=== PATIENT | male | born 1950 | race Two or more races ===

== ENCOUNTER 2019-12-03 04:47 | Inpatient (IN) | payer MEDICARE, MEDICAID ==
[2019-12-03] VITALS (43 sets, daily range): BP systolic 89–121; BP diastolic 46–64
[~2019-12-03] VITALS: Ht 167.6 cm; Wt 84.4 kg
--- NOTE | 2019-12-03 05:03 | NUR ---
Note kymone in EDM - 12/03/19 at 0504 by MORENO PT CAME TO ER NIDIA SALES C/O CHEST PAIN. PT STATES THAT WHEN HE WAS AT HOME, HE HAD CHEST PAIN 07/20. CURRRHYSTLY DENIES PAIN. AAOX4. NO SOB. BREATHING EVENLY AND UNLABORED ON ROOM AIR. CONNECTED TO IRONWORKER.
--- NOTE | 2019-12-03 05:03 | NUR ---
PT CAME TO ER BIB RA C/O NONRADIATING MIDSTERNAL CHEST PAIN. PT STATES THAT WHEN HE WAS AT HOME, HE HAD CHEST PAIN 07/20. MARYBETHTLY STATES PAIN IS A /. AAOX4. NO SOB. BREATHING EVENLY AND UNLABORED ON ROOM AIR. CONNECTED TO FULL STACK WEB DEVELOPER.
[2019-12-03 05:34] LABS: BASOPHILS # (AUTO) 0.1 /CMM (0.0-0.2); BASOPHILS % (AUTO) 1.2 % (0.0-2.0); EOSINOPHILS % (AUTO) 1.2 % (0.0-6.0); LYMPHOCYTES % (AUTO) 16.3 % (20.0-44.0); MEAN CORPUSCULAR HGB CONC 34 g/dl (31.0-36.0); MEAN CORPUSCULAR VOLUME 93 fL (80-96); MONOCYTES # (AUTO) 0.7 /CMM (0.1-1.30); MONOCYTES % (AUTO) 6.1 % (2.0-12.0); NEUTROPHILS # (AUTO) 9.2 /CMM (1.8-8.9); NEUTROPHILS % (AUTO) 75.2 % (43.0-81.0); PLATELET COUNT (AUTO) 494 /CMM (150-450); RED BLOOD CELL COUNT(AUTO) 1.81 MIL/uL (4.5-6.0); WHITE BLOOD COUNT (AUTO) 12.2 K/uL (4.3-11.0)
[2019-12-03 05:36] LABS: HEMATOCRIT 17 % (39-51); HEMOGLOBIN 5.6 g/dL (13.5-17.5)
[2019-12-03 05:37] LABS: CALCIUM, SERUM 8.6 mg/dL (8.5-10.1); CARBON DIOXIDE 27 mmol/L (21-32); CHLORIDE 103 mmol/L (98-107); CREATININE 1.5 mg/dL (0.6-1.3); GLUCOSE 175 mg/dL (74-106); POTASSIUM 4.6 mmol/L (3.5-5.1); SODIUM SERUM 137 mmol/L (136-145); UREA NITROGEN, BLOOD 41 mg/dL (7-18)
[2019-12-03] MEDS ORDERED: IV NS 0.9% 1,000 ML BAG IV ONE (06:00)
[2019-12-03 06:03] LABS: EOSINOPHILS % (MANUAL) 3 % (0-4); LYMPHOCYTES % (MANUAL) 18 % (16-48); MONOCYTES % (MANUAL) 2 % (0-11.0); NEUTROPHILS % (MANUAL) 77 (42-76)
--- NOTE | 2019-12-03 06:24 | NUR ---
BLOOD CONSENT FORM SIGNED
[2019-12-03 06:30] LABS: ALBUMIN 3.5 g/dL (3.4-5.0); BILIRUBIN,DIRECT 0.1 mg/dL (0.0-0.2); BILIRUBIN,TOTAL 0.4 mg/dL (0.2-1.0); TOTAL PROTEIN, SERUM 7.5 g/dL (6.4-8.2)
--- NOTE | 2019-12-03 07:34 | NUR ---
REPORT GIVEN TO LINDSEY LYNN FOR VIDAL.
--- NOTE | 2019-12-03 07:39 | NUR ---
CALLED FOR ICU BED AND SUBMITTED THE MOVE SHEET TO ADMITTING.
--- NOTE | 2019-12-03 09:26 | NUR ---
EPISODE OF VOMITING, BLANK VOMITUS NOTED. AWARE.
--- NOTE | 2019-12-03 09:26 | NUR ---
VERIFIED BLOOD COMPONENT WITH OLIVA WAGNER RN.
--- NOTE | 2019-12-03 09:29 | NUR ---
PRE BLOOD TRANSFUSION VS TAKEN AND RECORDED.
[2019-12-03] MEDS ORDERED: GABA-534 PO (09:32)
[2019-12-03] MEDS ORDERED: INSU100I26 SQ (09:32)
[2019-12-03] MEDS ORDERED: POTA10TA10 PO (09:32)
[2019-12-03] MEDS ORDERED: CLOP75TA15 PO (09:32)
[2019-12-03] MEDS ORDERED: FLUT1BLS12 IH (09:32)
[2019-12-03] MEDS ORDERED: SACU1TAB PO (09:32)
[2019-12-03] MEDS ORDERED: GLIM4TAB PO (09:32)
[2019-12-03] MEDS ORDERED: FURO-144 PO (09:32)
[2019-12-03] MEDS ORDERED: SPIR25TA PO (09:32)
[2019-12-03] MEDS ORDERED: METO25TA3 PO (09:32)
[2019-12-03] MEDS ORDERED: ASPI-1152 PO (09:32)
[2019-12-03] MEDS ORDERED: NITR0.4T48 SL (09:32)
[2019-12-03] MEDS ORDERED: FERR325T24 PO (09:32)
[2019-12-03] MEDS ORDERED: LEVO100T9 PO (09:32)
[2019-12-03] MEDS ORDERED: ATOR40TA PO (09:32)
[2019-12-03] MEDS ORDERED: SITA1TAB6 PO (09:32)
[2019-12-03] MEDS ORDERED: TAMS-12 PO (09:32)
[2019-12-03] MEDS ORDERED: FOLI0.4T2 PO (09:32)
[2019-12-03] MEDS ORDERED: CYAN-51 PO (09:32)
--- NOTE | 2019-12-03 09:59 | NUR ---
REPORT GIVEN TO JOSEFA LYNN OF ICU
[2019-12-03] MEDS ORDERED: ONDANSETRON HCL/PF - ER 4 MG/2 ML VIAL IV ONE (10:00)
[2019-12-03] MEDS ORDERED: ONDANSETRON HCL/PF 4 MG/2 ML VIAL ONE (10:15)
--- NOTE | 2019-12-03 10:30 | NUR ---
RN NOTES RECEIVED PT FROM ER IN ROOM 257, PT IS A/Ox4, ON 2L O2 N/C , RESPIRATION EVEN AND UNLABORED,NO DISTRESS NOTED, ON TELE SR-ST, L AC IV SITE G 18 CLEAN, DRY AND INTACT, PT REFUSED TO HAVE SECOND IV SITE ,PT RECEIVING FIRST UNIT OF PRBC , SUPPORTIVE FAMILY AT THE BEDSIDE, SR UP x3, CALL LIGHT WITHIN EASY REACH, BED LOCKED AND IN LOWEST POSITION, CONTINUE TO MONITOR .
[2019-12-03] MEDS ORDERED: ZOLPIDEM TARTRATE 5 MG TABLET PO PRN (11:00)
[2019-12-03] MEDS ORDERED: Z GUARD REMEDY 2 OZ OINT TP PRN (11:00)
[2019-12-03] MEDS ORDERED: MAGNESIUM HYDROXIDE 30 ML UDC PO PRN (11:00)
[2019-12-03] MEDS: PANTOPRAZOLE 40 MG VIAL IV SCH ×2 (11:04→21:45)
[2019-12-03] MEDS ORDERED: DEXTROSE 50%-WATER 50 ML DISP.SYRIN IV PRN (11:30)
--- NOTE | 2019-12-03 12:00 | NUR ---
RN NOTES EDDIE BARK SPUDDER NOTIFED REGARDING TROPONIN .157 , NOW NEW ORDER GIVEN , CONTINUE TO MONITOR .
[2019-12-03] MEDS: BLOOD SUGAR DIAGNOSTIC 1 EACH STRIP IN SCH ×3 (12:29→21:45)
--- NOTE | 2019-12-03 14:00 | NUR ---
RN NOTE SECOND UNIT OF PRBC NOT RECEIVED FROM [place] [facility] YET PER LAB . VSS STABLE, CONTINUE TO FOLLOW UP .
[2019-12-03 14:13] LABS: IRON, SERUM 89 ug/dl (50-175); TOTAL IRON BINDING CAPACITY 259 ug/dl (250-450)
[2019-12-03 14:27] LABS: FERRITIN 259 ng/mL (8-388)
--- NOTE | 2019-12-03 17:57 | NUR ---
RN NOTES PT TOLERATING THE SECOND UNIT OF PRBC WELL , NO DISTRESS NOTED, EDDIE LAY HEALTH ADVOCATE NOITFED REGARDING TROPONIN 0.285 , CONTINUE TO MONITOR .
--- NOTE | 2019-12-03 18:30 | NUR ---
RN NOTES PT STABLE , STATED HAS MORE ENERGY, SECOND UNIT OF PRBC TRANSFUSED, NO COMPLICATION NOTED, VSS STABLE, L UPPER ARM MIDLINE SITE CLEAN, DRY AND INTACT, WILL ENDOSE TO PROPERTY MANAGEMENT COORDINATOR NURSE FOR CONTINUITY OF CARE.
--- NOTE | 2019-12-03 19:15 | NUR ---
ENVIRONMENTAL SERVICES MANAGER RCD PT W/DX GI BLEED; ANEMIA PT A/0x 4 PT VERBALIZES FEELING TIRED. NSR ON MONITOR. 02 3L NC NO DISTRESS NOTED. URINAL AT BEDSIDE. BLOOD TRANSFUSION ONGOING. Addendum: 12/04/19 at 0330 by ONDINA FINNEGAN RN NO ORDER FOR FOLLOW UP [facility] POST TRANSFUSION.
[2019-12-03 19:20] LABS: APPEARANCE,URINE CLEAR (CLEAR); BILIRUBIN,URINE NEGATIVE (NEGATIVE); BLOOD, URINE TRACE Ery/uL (NEGATIVE); COLOR,URINE YELLOW (YELLOW); KETONES,URINE NEGATIVE (NEGATIVE); LEUKOCYTE ESTERASE ,URINE MODERATE (NEGATIVE); NITRITE, URINE POSITIVE (NEGATIVE); PH,URINE 5.5 (5.0-8.0); PROTEIN,URINE NEGATIVE (NEGATIVE); UGLUCOSE NEGATIVE (NEGATIVE); UROBILINOGEN,URINE 0.2 EU/dL (0.2)
[2019-12-03 19:35] LABS: CREATININE, URINE 75.3 MG/DL (30.0-125.0); URINE TOTAL PROTEIN 17.9 mg/dL (0-11.9)
[2019-12-03 19:47] LABS: BACTERIA,URINE 3+ /HPF (None Seen); WBC,URINE 51-80 /HPF (0-3)
[2019-12-03 19:48] LABS: MUCUS,URINE Few /LPF (None Seen); SQUAMOUS EPITHELIAL CELL,UR 0-2 /HPF (None Seen)
[2019-12-03 20:51] LABS: EOSINOPHIL,URINE None Seen
--- NOTE | 2019-12-03 21:45 | NUR ---
POUCH MAKER PT DECLINED ACCU CHECK AT THIS TIME ASKED NURSE TO COME BACK LATER.
[2019-12-04] VITALS (23 sets, daily range): BP systolic 102–145; BP diastolic 54–77
--- NOTE | 2019-12-04 03:28 | NUR ---
SUPERVISOR DIE CASTING PT CONTINUES SLEEPING NO DISTRESS NOTED AT THIS TIME.
[2019-12-04 04:33] LABS: BASOPHILS # (AUTO) 0.1 /CMM (0.0-0.2); BASOPHILS % (AUTO) 1.4 % (0.0-2.0); EOSINOPHILS % (AUTO) 0.7 % (0.0-6.0); HEMATOCRIT 22 % (39-51); HEMOGLOBIN 7.3 g/dL (13.5-17.5); LYMPHOCYTES # (AUTO) 0.9 /CMM (0.8-4.8); LYMPHOCYTES % (AUTO) 8.4 % (20.0-44.0); MEAN CORPUSCULAR HGB CONC 33 g/dl (31.0-36.0); MEAN CORPUSCULAR VOLUME 93 fL (80-96); MONOCYTES # (AUTO) 0.5 /CMM (0.1-1.30); MONOCYTES % (AUTO) 4.8 % (2.0-12.0); NEUTROPHILS # (AUTO) 8.8 /CMM (1.8-8.9); NEUTROPHILS % (AUTO) 84.7 % (43.0-81.0); PLATELET COUNT (AUTO) 388 /CMM (150-450); RED BLOOD CELL COUNT(AUTO) 2.34 MIL/uL (4.5-6.0); WHITE BLOOD COUNT (AUTO) 10.4 K/uL (4.3-11.0)
[2019-12-04] MEDS: HYDROCODONE/APAP 5/325MG 1 EACH TABLET PO PRN ×2 (04:38→21:19)
[2019-12-04 04:47] LABS: ALBUMIN 3.3 g/dL (3.4-5.0); BILIRUBIN,TOTAL 0.5 mg/dL (0.2-1.0); CALCIUM, SERUM 8.6 mg/dL (8.5-10.1); CREATININE 1.3 mg/dL (0.6-1.3); MAGNESIUM 1.9 mg/dL (1.8-2.4); PHOSPHORUS 3.9 mg/dL (2.5-4.9); POTASSIUM 4.3 mmol/L (3.5-5.1); TOTAL PROTEIN, SERUM 7.1 g/dL (6.4-8.2)
[2019-12-04] MEDS: ONDANSETRON HCL/PF 4 MG/2 ML VIAL IVP PRN (05:27)
[2019-12-04] MEDS ORDERED: MORPHINE SULFATE INJ 2 MG/ML DISP.SYRIN IV PRN (05:30)
--- NOTE | 2019-12-04 05:40 | NUR ---
COLORIST PT MOANING AND AGITATED C/O ABDOMINAL PAIN WITHOUT RELIEF AFTER NORCO ADMINISTRATION; PT HR INCREASED TO 130 SATURATION 89. RCD ORDER FOR MORPHINE. INCREASED O2 5L NC. PT ATTEMPTING TO CALL STATES HE DOES NOT WANT TO HERE. PT DENIES CHEST PAIN. CONTINUE TO MONITOR PT.
--- NOTE | 2019-12-04 05:44 | NUR ---
SEARCH ANALYST MULTIPLE ATTEMPTS TO CALL HOWEVER SHE DOES NOT ANSWER.
--- NOTE | 2019-12-04 05:52 | NUR ---
PAPER MACHINE SUPERVISOR PT MORE CALM AT THIS TIME; DENIES PAIN CONTINUES TO WORRY HE CAN NOT REACH HIS .
[2019-12-04] MEDS: BLOOD SUGAR DIAGNOSTIC 1 EACH STRIP IN SCH ×4 (07:54→21:19)
[2019-12-04] MEDS: PANTOPRAZOLE 40 MG VIAL IV SCH ×2 (08:05→21:18)
[2019-12-04] MEDS: INSULIN REGULAR, HUMAN 100 UNIT/ML 3 ML VIAL SQ PRN ×2 (08:38→13:25)
[2019-12-04] MEDS ORDERED: Sacubitril/Valsartan (Entresto 24 mg-26 mg Tablet) PO SCH (09:00)
[2019-12-04 09:11] LABS: THYROID STIMULATING HORMONE 2.916 uIU/mL (0.358-3.74)
--- NOTE | 2019-12-04 09:51 | NUR ---
ICU/RN: Spoke with Dr Landry regarding troponin bump, per MD, nothing we can do as of now - pt "needs gi eval then cath, sounds like they want [facility]."
[2019-12-04] MEDS: GLIMEPIRIDE 4 MG TABLET PO SCH (10:34)
[2019-12-04] MEDS: FLUTICASONE/VILANTEROL 1 EACH BLST.W.DEV IH SCH ×2 (10:34→17:59)
[2019-12-04] MEDS: TAMSULOSIN 0.4 MG CAP.SR.24H PO SCH (10:35)
[2019-12-04] MEDS: SPIRONOLACTONE 25 MG TABLET PO SCH (10:35)
[2019-12-04] MEDS: LEVOTHYROXINE SODIUM 100 MCG TABLET PO SCH (10:35)
--- NOTE | 2019-12-04 11:00 | NUR ---
ICU/RN: Dr Landry at bedside; per rick HOLCOMB to proceed with downgrade to telemetry. Pt to inform of pt transfer to [facility]2.
--- NOTE | 2019-12-04 11:05 | NUR ---
ICU/RN: Pt transferred to [place] [id number] in stable condition; no distress noted. Bedside hand off given to LEAH Merida. Pending transfer to [facility] and VANESSA mccormack.
[2019-12-04] MEDS: ACETAMINOPHEN 325 MG TABLET PO PRN (12:21)
--- NOTE | 2019-12-04 12:30 | NUR ---
RN NOTES PT HAS A TEMP OF 99.9, PRN TYLENOL GIVEN. WBC HAS ALSO INCREASED. RELAYED INFORMATION TO MD, NO NEW ORDERS AT THIS TIME. NOTIFIED MD TO COMPLETE MED RECON, WILL CONTINUE TO MONITOR FOR ANY CHANGES.
[2019-12-04 12:41] LABS: HEMATOCRIT 23 % (39-51); HEMOGLOBIN 7.7 g/dL (13.5-17.5); MEAN CORPUSCULAR HGB CONC 34 g/dl (31.0-36.0); MEAN CORPUSCULAR VOLUME 93 fL (80-96); PLATELET COUNT (AUTO) 435 /CMM (150-450); RED BLOOD CELL COUNT(AUTO) 2.48 MIL/uL (4.5-6.0); WHITE BLOOD COUNT (AUTO) 14.2 K/uL (4.3-11.0)
--- NOTE | 2019-12-04 19:54 | NUR ---
RN NOTES PATIENT IS RESTING IN BED COMFORTABLY AT THIS TIME, NO S.SX OF DISTRESS. HE IS ON 3L OFOXYGEN VIA NC, TOLERATING WELL. PT NEEDS HAVE BEEN MET, VITAL SIGNS ARE STABLE, NO ACUTE CHANGES OCCURRED THROUGHOUT THE SHIFT. SAFETY MEASURES HAVE BEEN IMPLEMENTED, CALL LIGHT IS WITHIN REACH, BED IS IN LOWEST AND LOCKED POSITION, SIDE RAILS UP X2M, WILL CONTINUE TO MONITOR FOR ANY CHANGES.
--- NOTE | 2019-12-04 19:59 | NUR ---
PT HAS BEEN ENDORSED TO NIGHTSHIFT RN FOR VIDAL
--- NOTE | 2019-12-04 20:10 | NUR ---
RN NOTE SPOKE WITH DR. MCINTYRE WITH ORDERS TO PLACE PT NPO AFTER MIDNIGHT AND OBTAIN CONSENT FOR EGD @6AM. ORDERS NOTED AND CARRIED OUT.
[2019-12-04] MEDS: GABAPENTIN 300 MG CAPSULE PO SCH (21:19)
[2019-12-04] MEDS: ATORVASTATIN 40 MG TABLET PO SCH (21:19)
--- NOTE | 2019-12-04 21:30 | NUR ---
RN NOTE PT C/O SORE THROAT AND PRODUCTIVE COUGH WITH CLEAR SECRETIONS. NOTIFIED VEGETABLE HARVEST MACHINE OPERATOR DR BONILLA WITH ORDERS TO GIVE ROBITUSSIN AC Q6H PRN. ORDERS NOTED AND CARRIED OUT.
[2019-12-04] MEDS: GUAIFENESIN/CODEINE 10 ML UDC PO PRN (21:52)
[2019-12-05] VITALS (10 sets, daily range): BP systolic 101–115; BP diastolic 52–61
[2019-12-05] MEDS: GUAIFENESIN/CODEINE 10 ML UDC PO PRN ×2 (04:38→17:07)
[2019-12-05] MEDS: ACETAMINOPHEN 325 MG TABLET PO PRN ×2 (04:38→15:12)
--- NOTE | 2019-12-05 05:45 | NUR ---
RN NOTE PT TAKEN TO OR BY SURGERY TEAM VIA BED. A/O X4 AND PASHTO SPEAKING. ON 4L OF O2 VIA NC AND TOLERATING WELL. REMAINED NPO SINCE MIDNIGHT. WILL ENDORSE TO NEXT SHIFT.
[2019-12-05 06:24] LABS: BASOPHILS # (AUTO) 0.1 /CMM (0.0-0.2); BASOPHILS % (AUTO) 0.7 % (0.0-2.0); EOSINOPHILS % (AUTO) 0.6 % (0.0-6.0); LYMPHOCYTES # (AUTO) 0.9 /CMM (0.8-4.8); LYMPHOCYTES % (AUTO) 10.6 % (20.0-44.0); MEAN CORPUSCULAR HGB CONC 34 g/dl (31.0-36.0); MEAN CORPUSCULAR VOLUME 93 fL (80-96); MONOCYTES # (AUTO) 0.5 /CMM (0.1-1.30); MONOCYTES % (AUTO) 5.3 % (2.0-12.0); NEUTROPHILS # (AUTO) 7.1 /CMM (1.8-8.9); NEUTROPHILS % (AUTO) 82.8 % (43.0-81.0); PLATELET COUNT (AUTO) 355 /CMM (150-450); RED BLOOD CELL COUNT(AUTO) 2.18 MIL/uL (4.5-6.0); WHITE BLOOD COUNT (AUTO) 8.6 K/uL (4.3-11.0)
[2019-12-05 06:31] LABS: ALANINE AMINOTRANSFERASE 11 U/L (12-78); ALBUMIN 3.4 g/dL (3.4-5.0); ALKALINE PHOSPHATASE 55 U/L (46-116); ASPARTATE AMINOTRANSFERASE 25 U/L (15-37); BILIRUBIN,TOTAL 0.9 mg/dL (0.2-1.0); CALCIUM, SERUM 8.1 mg/dL (8.5-10.1); CARBON DIOXIDE 22 mmol/L (21-32); CHLORIDE 103 mmol/L (98-107); CREATININE 1.6 mg/dL (0.6-1.3); GLUCOSE 162 mg/dL (74-106); MAGNESIUM 1.8 mg/dL (1.8-2.4); PHOSPHORUS 4.5 mg/dL (2.5-4.9); POTASSIUM 4.5 mmol/L (3.5-5.1); SODIUM SERUM 137 mmol/L (136-145); TOTAL PROTEIN, SERUM 7.2 g/dL (6.4-8.2); UREA NITROGEN, BLOOD 26 mg/dL (7-18)
--- NOTE | 2019-12-05 07:20 | NUR ---
RN NOTE PT RETURNED FROM OR POST EGD. PT A/O X4. DENIES PAIN AT THIS TIME. ON 4L OF O2 VIA NC. NO DISTRESS NOTED AT THIS TIME. CRITICAL VALUE H/H 6.9. NOTIFIED AT BEDSIDE. DR WILL PLACE ORDERS. ENDORSED TO NEXT SHIFT FOR CONTINUITY OF CARE.
[2019-12-05 07:22] LABS: HEMATOCRIT 20 % (39-51); HEMOGLOBIN 6.9 g/dL (13.5-17.5)
[2019-12-05] MEDS: LEVOTHYROXINE SODIUM 100 MCG TABLET PO SCH (07:45)
[2019-12-05] MEDS: BLOOD SUGAR DIAGNOSTIC 1 EACH STRIP IN SCH ×4 (07:58→21:26)
[2019-12-05 08:06] LABS: PTH, INTACT 33 pg/mL (15-65)
[2019-12-05 08:08] LABS: LYMPHOCYTES % (MANUAL) 10 % (16-48); MONOCYTES % (MANUAL) 8 % (0-11.0); NEUTROPHILS % (MANUAL) 82 (42-76)
--- NOTE | 2019-12-05 08:19 | NUR ---
RN OPENING NOTES RECEIVED PATIENT RESTING IN BED COMFORTABLY, JUST RETURNED FROM THE OR FOR EGD. HE IS AOX4, VERBAL, AND AMBULATORY. HE IS ON 4L OF OXYGEN VIA NC, TOLERATING WELL, NO SOB OR RESP DISTRESS NOTED. TELE MONITOR SHOWING ST. SKIN IS INTACT, LUNGS SOUND CLEAR. REGULAR DIET, TOLERATING WELL. AR MIDLINE IS PATENT AND INTACT, LAC 18 G IS PATENT AND INTACT. PT HAS ELEVATED TROPONIN LEVELS AND DROP IN HGB, DR. KEARA JACKSON MADE AWARE. SAFETY MEASURES HAVE BEEN IMPLEMENTED, CALL LIGHT IS WITHIN REACH, BED IS IN LOWEST AND LOCKED POSITION, SIDE RAILS UP X2, WILL CONTINUE TO MONITOR FOR OTHER CHANGES.
[2019-12-05] MEDS: PANTOPRAZOLE 40 MG VIAL IV SCH ×2 (08:30→21:10)
[2019-12-05] MEDS: FLUTICASONE/VILANTEROL 1 EACH BLST.W.DEV IH SCH ×2 (08:31→17:07)
[2019-12-05] MEDS: INSULIN REGULAR, HUMAN 100 UNIT/ML 3 ML VIAL SQ PRN ×2 (08:34→12:56)
[2019-12-05] MEDS: SPIRONOLACTONE 25 MG TABLET PO SCH (08:35)
[2019-12-05] MEDS: TAMSULOSIN 0.4 MG CAP.SR.24H PO SCH (08:35)
[2019-12-05] MEDS: GLIMEPIRIDE 4 MG TABLET PO SCH (08:35)
[2019-12-05] MEDS ORDERED: CARVEDILOL 3.125 MG TABLET PO SCH (09:00)
--- NOTE | 2019-12-05 09:50 | NUR ---
ALLIGATOR SHEAR OPERATOR NOTE INFORMED DR OKEEFE REG LOW HGB LEVEL. ORDERED 1 UNIT OF RBC. NOTED AND CARRIED OUT. WILL CONT TO MONITOR.
[2019-12-05 11:07] LABS: *SPE ALBUMIN 3.3 g/dL (2.9-4.4); *SPE ALPHA-1-GLOBULIN 0.2 g/dL (0.0-0.4); *SPE ALPHA-2-GLOBULIN 0.5 g/dL (0.4-1.0); *SPE BETA GLOBULIN 0.8 g/dL (0.7-1.3); *SPE GLOBULIN, TOTAL 3.3 g/dL (2.2-3.9); *SPE M-SPIKE Not Observed g/dL (Not Observed); *SPEGAMMA GLOBULIN 1.8 g/dL (0.4-1.8)
[2019-12-05 12:20] LABS: MEAN CORPUSCULAR HGB CONC 34 g/dl (31.0-36.0); MEAN CORPUSCULAR VOLUME 93 fL (80-96); PLATELET COUNT (AUTO) 293 /CMM (150-450); RED BLOOD CELL COUNT(AUTO) 2.03 MIL/uL (4.5-6.0); WHITE BLOOD COUNT (AUTO) 9.7 K/uL (4.3-11.0)
[2019-12-05 12:29] LABS: HEMOGLOBIN 6.3 g/dL (13.5-17.5)
[2019-12-05 12:30] LABS: HEMATOCRIT 19 % (39-51)
--- NOTE | 2019-12-05 15:39 | NUR ---
RN NOTES BLOOD TRANSFUSION HAS BEEN INITIATED, NO ADVERSE REACTIONS OCCURRED DURING FIRST 15 MIN. PT IS TOLERATING WELL. WILL CONTINUE TO MONITOR FOR ANY CHANGES.
[2019-12-05] MEDS: CEFTRIAXONE 1 G in IV D5W 50 ML IV SCH (17:07)
[2019-12-05] MEDS: ONDANSETRON HCL/PF 4 MG/2 ML VIAL IVP PRN (17:08)
--- NOTE | 2019-12-05 19:20 | NUR ---
RN OPENING NOTE RECEIVED PATIENT IN BED RESTING WITH HOB ELEVATED. WATCHING TV. A&O X4. BREATHING EVEN AND NON LABORED. NO SOB NOTED. ON O2 4L VIA NC. IN NO APPARENT DISTRESS NOTED AT THIS TIME. NO COMPLAINTS OF PAIN. ABLE TO MAKE NEEDS KNOWN. CALL LIGHT IS WITHIN REACH. WILL CONTINUE TO MONITOR.
--- NOTE | 2019-12-05 19:31 | NUR ---
RN CLOSING NOTES PATIENT IS RESTING IN BED COMFORTABLY AT THIS TIME. PT IS ON NC, TOLERATING WELL, NO SOB OR RESP DITRESS NOTED. PT IS S/P EGD AND ONE UNIT OF PRBC, TOLERATED WELL, NO ADVERSE REACTIONS OCCURRED. PT NEEDS HAVE BEEN MET, VITAL SIGNS ARE STABLE, NO ACUTE CHANGES OCCURRED THROUGHOUT THE SHIFT. SAFETY MEASURES HAVE BEEN IMPLEMENTED, CALL LIGHT IS WITHIN REACH, BED IS IN LOWEST AND LOCKED POSITION, SIDE RAILS UP X2, PT HAS BEEN ENDORSED TO NIGHTSHIFT RN FOR VIDAL.
[2019-12-05] MEDS: ATORVASTATIN 40 MG TABLET PO SCH (21:10)
[2019-12-05] MEDS: GABAPENTIN 300 MG CAPSULE PO SCH (21:10)
[2019-12-05] MEDS: CARVEDILOL 3.125 MG TABLET PO SCH (21:11)
[2019-12-06] VITALS (14 sets, daily range): BP systolic 90–140; BP diastolic 22–70
--- NOTE | 2019-12-06 06:54 | NUR ---
RN CLOSING NOTE PATIENT IS IN BED RESTING. BREATHING EVEN AND NON LABORED. A&O X3. IN NO APPARENT DISTRESS AT THIS TIME. NO SIGNIFICANT CHANGES NOTED THROUGHOUT THE NIGHT. PATIENT REMAINED STABLE. DUE MEDS GIVEN AND TOLERATED WELL. ALL NEEDS ATTENDED AND MET. PATIENT IS KEPT CLEAN, DRY, AND COMFORTABLE. WILL ENDORSE TO AM SHIFT RN FOR CONTINUATION OF CARE.
[2019-12-06 07:07] LABS: BASOPHILS % (AUTO) 0.6 % (0.0-2.0); EOSINOPHILS % (AUTO) 1.2 % (0.0-6.0); HEMATOCRIT 22 % (39-51); HEMOGLOBIN 7.1 g/dL (13.5-17.5); LYMPHOCYTES % (AUTO) 12.8 % (20.0-44.0); MEAN CORPUSCULAR HGB CONC 33 g/dl (31.0-36.0); MEAN CORPUSCULAR VOLUME 92 fL (80-96); MONOCYTES # (AUTO) 0.5 /CMM (0.1-1.30); MONOCYTES % (AUTO) 6.3 % (2.0-12.0); NEUTROPHILS % (AUTO) 79.1 % (43.0-81.0); PLATELET COUNT (AUTO) 302 /CMM (150-450); RED BLOOD CELL COUNT(AUTO) 2.34 MIL/uL (4.5-6.0); WHITE BLOOD COUNT (AUTO) 7.5 K/uL (4.3-11.0)
--- NOTE | 2019-12-06 07:10 | NUR ---
RN OPENING NOTES PT IS ASLEEP IN BED PT REMOVED NASAL CANNULA. PT IS A&OX3 PER REPORT. PT IS SR HR 84. PER REPORT PT HAS A LCW PACEMAKER. BED IS LOCKED AND IN LOWEST POSITION WITH CALL LIGHT IN REACH OF PT. WILL CONTINUE TO MONITOR.
[2019-12-06 07:55] LABS: ALANINE AMINOTRANSFERASE 18 U/L (12-78); ALKALINE PHOSPHATASE 55 U/L (46-116); ASPARTATE AMINOTRANSFERASE 24 U/L (15-37); BILIRUBIN,TOTAL 0.5 mg/dL (0.2-1.0); CALCIUM, SERUM 7.8 mg/dL (8.5-10.1); CARBON DIOXIDE 23 mmol/L (21-32); CHLORIDE 103 mmol/L (98-107); CREATININE 1.6 mg/dL (0.6-1.3); GLUCOSE 58 mg/dL (74-106); MAGNESIUM 1.9 mg/dL (1.8-2.4); PHOSPHORUS 3.6 mg/dL (2.5-4.9); POTASSIUM 4.3 mmol/L (3.5-5.1); SODIUM SERUM 136 mmol/L (136-145); TOTAL PROTEIN, SERUM 6.8 g/dL (6.4-8.2); UREA NITROGEN, BLOOD 28 mg/dL (7-18)
[2019-12-06] MEDS: BLOOD SUGAR DIAGNOSTIC 1 EACH STRIP IN SCH ×4 (08:37→22:39)
[2019-12-06] MEDS: SPIRONOLACTONE 25 MG TABLET PO SCH (08:38)
[2019-12-06] MEDS: GLIMEPIRIDE 4 MG TABLET PO SCH (08:38)
[2019-12-06] MEDS: TAMSULOSIN 0.4 MG CAP.SR.24H PO SCH (08:38)
[2019-12-06] MEDS: CARVEDILOL 3.125 MG TABLET PO SCH ×2 (08:38→21:55)
[2019-12-06] MEDS: FLUTICASONE/VILANTEROL 1 EACH BLST.W.DEV IH SCH ×2 (08:38→18:07)
[2019-12-06] MEDS: PANTOPRAZOLE 40 MG VIAL IV SCH ×2 (08:38→21:05)
[2019-12-06] MEDS: LEVOTHYROXINE SODIUM 100 MCG TABLET PO SCH (08:41)
[2019-12-06] MEDS: INSULIN REGULAR, HUMAN 100 UNIT/ML 3 ML VIAL SQ PRN ×2 (12:34→22:42)
[2019-12-06 12:45] LABS: HEMATOCRIT 23 % (39-51); HEMOGLOBIN 7.5 g/dL (13.5-17.5); MEAN CORPUSCULAR HGB CONC 34 g/dl (31.0-36.0); MEAN CORPUSCULAR VOLUME 91 fL (80-96); PLATELET COUNT (AUTO) 316 /CMM (150-450); RED BLOOD CELL COUNT(AUTO) 2.47 MIL/uL (4.5-6.0); WHITE BLOOD COUNT (AUTO) 9.9 K/uL (4.3-11.0)
[2019-12-06] MEDS: CEFTRIAXONE 1 G in IV D5W 50 ML IV SCH (14:14)
--- NOTE | 2019-12-06 18:36 | NUR ---
PT REFUSED INSULIN. BLOOD GLUCOSE 161.
--- NOTE | 2019-12-06 18:42 | NUR ---
PT DOES NOT WANT BLOOD TRANSFUSION UNTIL HE IS DONE WITH HIS DINNER.
--- NOTE | 2019-12-06 19:15 | NUR ---
RN CLOSING NOTES PT IS AWAKE IN BED PT CONTINUES TO REMOVE NASAL CANNULA AND NEEDS TO BE REMINDED FREQUENTLY TO KEEP ON NASAL CANNULA. PT IS A&OX3 AND DID NOT WANT BLOOD TRANSFUSING UNTIL AFTER DINNER. PT IS SR HR 84. WAS AT BEDSIDE AND UPDATED ON PENDING [facility] TRANSFER. PT HAS A LCW PACEMAKER. BED IS LOCKED AND IN LOWEST POSITION WITH CALL LIGHT IN REACH OF PT. WILL ENDORSE VIDAL TO DISTRIBUTION A CLASS LINEMAN RN.
--- NOTE | 2019-12-06 19:45 | NUR ---
RN OPENING NOTES: PATIENT IN BED, AWAKE, AND VERBALLY RESPONSIVE. NO SOB. NO C/O PAIN AT THIS TIME. PER AM SHIFT NURSE, PATIENT NEEDS 1 UNIT OF PRBC BLOOD TRANSFUSION, WILL REVIEW ORDERS. SAFETY PRECAUTIONS IMPLEMENTED. BED LOCKED, ALARM ON, AND IN LOW POSITION. CALL LIGHT PLACED WITHIN REACH. WILL CONT. TO MONITOR.
--- NOTE | 2019-12-06 20:45 | NUR ---
RN NOTE: VITAL SIGNS TAKEN, CONSENT SIGNED, BLOOD TRANSFUSION STARTED, WITNESSED BY CHARGE NURSE ONDINA. WILL CONT. TO MONITOR. Addendum: 12/07/19 at 0511 by KEYANA ROSS RN [id number]: PATIENT IN BED, AWAKE, VERBALLY RESPONSIVE VITALS SIGNS CHECKED PER PROTOCOL. NO ADVERSE REACTIONS NOTED DURING TRANSFUSION. WILL CONT. TO MONITOR.
[2019-12-06] MEDS: GABAPENTIN 300 MG CAPSULE PO SCH (21:04)
[2019-12-06] MEDS: ATORVASTATIN 40 MG TABLET PO SCH (21:05)
[2019-12-07] VITALS: BP 105/60
[2019-12-07] MEDS: ACETAMINOPHEN 325 MG TABLET PO PRN (00:10)
[2019-12-07 04:00] VITALS: BP 99/54
--- NOTE | 2019-12-07 07:00 | NUR ---
LINDERMAN MACHINE OPERATOR - OPENING PATIENT IN BED, ASLEEP BUT IS EASILY WOKEN WITH NAME AND TOUCH. NO C/O PAIN AT THIS TIME . NO SOB. NO ACUTE RESPIRATORY DISTRESS. PATIENT IS ON OXYGEN PRESCRIBE BY DOCTOR. PATIENT IS SATURATING WELL . BED LOCKED AND LOWEST POSITION CALL LIGHT WITH IN REACH ALL SAFETY
--- NOTE | 2019-12-07 07:25 | NUR ---
RN CLOSING NOTE: PATIENT IN BED, AWAKE, AND VERBALLY RESPONSIVE. NO SOB. NO C/O PAIN. SAFETY PRECAUTIONS IMPLEMENTED. BED LOCKED, ALARM ON, AND IN LOW POSITION. PATIENT MIGHT BE DC'D TO [facility] FOR HIGHER LEVEL OF CARE. ENDORSED TO AM SHIFT NURSE FOR CONTINUITY OF CARE.
[2019-12-07 08:00] VITALS: BP 126/72
[2019-12-07] MEDS: GLIMEPIRIDE 4 MG TABLET PO SCH (08:57)
[2019-12-07] MEDS: FLUTICASONE/VILANTEROL 1 EACH BLST.W.DEV IH SCH ×2 (08:57→18:20)
[2019-12-07] MEDS: PANTOPRAZOLE 40 MG VIAL IV SCH ×2 (08:58→21:18)
[2019-12-07] MEDS: SPIRONOLACTONE 25 MG TABLET PO SCH (08:58)
[2019-12-07] MEDS: BLOOD SUGAR DIAGNOSTIC 1 EACH STRIP IN SCH ×4 (08:59→22:26)
[2019-12-07] MEDS: CARVEDILOL 3.125 MG TABLET PO SCH ×2 (08:59→21:19)
[2019-12-07] MEDS: LEVOTHYROXINE SODIUM 100 MCG TABLET PO SCH (09:00)
[2019-12-07] MEDS: TAMSULOSIN 0.4 MG CAP.SR.24H PO SCH (09:01)
[2019-12-07 11:50] LABS: BASOPHILS % (AUTO) 0.5 % (0.0-2.0); EOSINOPHILS % (AUTO) 1.7 % (0.0-6.0); HEMATOCRIT 25 % (39-51); HEMOGLOBIN 8.3 g/dL (13.5-17.5); LYMPHOCYTES # (AUTO) 0.7 /CMM (0.8-4.8); LYMPHOCYTES % (AUTO) 7.5 % (20.0-44.0); MEAN CORPUSCULAR HGB CONC 33 g/dl (31.0-36.0); MEAN CORPUSCULAR VOLUME 92 fL (80-96); MONOCYTES # (AUTO) 0.3 /CMM (0.1-1.30); MONOCYTES % (AUTO) 3.9 % (2.0-12.0); NEUTROPHILS # (AUTO) 7.8 /CMM (1.8-8.9); NEUTROPHILS % (AUTO) 86.4 % (43.0-81.0); PLATELET COUNT (AUTO) 300 /CMM (150-450)
[2019-12-07 12:00] VITALS: BP 119/67
[2019-12-07 12:02] LABS: CALCIUM, SERUM 7.9 mg/dL (8.5-10.1); CARBON DIOXIDE 23 mmol/L (21-32); CHLORIDE 103 mmol/L (98-107); CREATININE 1.5 mg/dL (0.6-1.3); GLUCOSE 212 mg/dL (74-106); POTASSIUM 4.8 mmol/L (3.5-5.1); SODIUM SERUM 134 mmol/L (136-145); UREA NITROGEN, BLOOD 32 mg/dL (7-18)
[2019-12-07 12:17] LABS: HEMATOCRIT 25 % (39-51); HEMOGLOBIN 8.4 g/dL (13.5-17.5); MEAN CORPUSCULAR HGB CONC 34 g/dl (31.0-36.0); MEAN CORPUSCULAR VOLUME 92 fL (80-96); PLATELET COUNT (AUTO) 301 /CMM (150-450); RED BLOOD CELL COUNT(AUTO) 2.72 MIL/uL (4.5-6.0)
[2019-12-07] MEDS: INSULIN REGULAR, HUMAN 100 UNIT/ML 3 ML VIAL SQ PRN ×2 (12:25→22:29)
[2019-12-07] MEDS: CEFTRIAXONE 1 G in IV D5W 50 ML IV SCH (14:35)
--- NOTE | 2019-12-07 14:57 | NUR ---
FACILITY MANAGER HISTOLOGY - OPENING PATIENT IN BED, ASLEEP BUT IS EASILY WOKEN WITH NAME AND TOUCH. NO C/O PAIN AT THIS TIME . NO SOB. NO ACUTE RESPIRATORY DISTRESS. PATIENT IS ON OXYGEN PRESCRIBE BY DOCTOR. PATIENT IS SATURATING WELL . BED LOCKED AND LOWEST POSITION CALL LIGHT WITH IN REACH ALL SAFETY MEASURE IMPLEMENTED PERHOSPITAL POLICY.
[2019-12-07 16:00] VITALS: BP 110/70
--- NOTE | 2019-12-07 16:57 | NUR ---
spoke with Davida at [facility] bed control [phone] still no beds available today. [facility] will contact nurse station when bed gets available tonight Addendum: 12/07/19 at 1658 by JASKARAN BALLARD RN Amended: Links added.
--- NOTE | 2019-12-07 16:58 | NUR ---
spoke with Davida at [facility] bed control [phone] still no beds available today. [facility] will contact nurse station when bed gets available tonight Addendum: 12/07/19 at 1658 by JASKARAN BALLARD RN Amended: Links added.
--- NOTE | 2019-12-07 18:42 | NUR ---
RN TELE1 CLOSING PATIENT IS ALERTAND ORIENTED Q2RHIIESY IS COOPERATIVE WITH CARE. PATIENT SHOWS NO SIGNS OF SOB, NOACUTE RESPIRATORY DISTRESS .PATIENT IS SATURAING WELL WITH OXYGEN . SKIN IN TACT. BED LOCKED AND LOWEST POSITION CALL LIGHT WITH IN REACH ALL SAFETY MEASURE IMPLEMENTED PER HOSPITAL POLICY. PATIENT HAS AR INTACT AND PATENT WITH TKO. RIGHT AC. 18 PATENT AN INTACT NO SIGNS OF INFILTRATION
--- NOTE | 2019-12-07 19:15 | NUR ---
RN OPENING NOTES: PATIENT IN BED, AWAKE, AND VERBALLY RESPONSIVE. NO SOB. NO C/O PAIN. DR. ROYAL AT BEDSIDE. PER MD, PATIENT TO BE TRANSFERRED TO [facility] FOR HIGHER LEVEL OF CARE AND GI WORKUP. ALSO STATED NO NEED FOR BLOOD TRANSFUSION AT THIS TIME. AR MIDLINE C/D/I. FLUSHING WELL, ON TKO. SAFETY PRECAUTIONS IMPLEMENTED. BED ALARM ON, LOCKED, AND LOW POSITION. CALL LIGHT PLACED WITHIN REACH. WILL CONT. TO MONITOR.
[2019-12-07 20:00] VITALS: BP 114/65
[2019-12-07] MEDS: GABAPENTIN 300 MG CAPSULE PO SCH (21:18)
[2019-12-07] MEDS: ATORVASTATIN 40 MG TABLET PO SCH (21:19)
[2019-12-08] VITALS (15 sets, daily range): BP systolic 100–122; BP diastolic 55–98
--- NOTE | 2019-12-08 07:15 | NUR ---
RN CLOSING NOTES: PATIENT IN BED, AWAKE, AND VERBALLY RESPONSIVE. NO SOB. NO C/O PAIN. AR MIDLINE C/D/I. FLUSHING WELL, ON TKO. SAFETY PRECAUTIONS IMPLEMENTED. BED ALARM ON, LOCKED, AND LOW POSITION. PER MD, PATIENT WILL BE TRANSFERRED TO [facility] FOR GI WORKUP AND HIGHER LEVEL OF CARE ONCE BED IS AVAILABLE. ENDORSED TO AM SHIFT NURSE FOR CONTINUITY OF CARE.
[2019-12-08] MEDS: BLOOD SUGAR DIAGNOSTIC 1 EACH STRIP IN SCH ×4 (07:40→21:32)
[2019-12-08] MEDS: LEVOTHYROXINE SODIUM 100 MCG TABLET PO SCH (07:40)
[2019-12-08] MEDS: FLUTICASONE/VILANTEROL 1 EACH BLST.W.DEV IH SCH ×2 (08:42→17:39)
[2019-12-08] MEDS: PANTOPRAZOLE 40 MG VIAL IV SCH ×2 (08:42→20:46)
[2019-12-08] MEDS: GLIMEPIRIDE 4 MG TABLET PO SCH (08:42)
[2019-12-08] MEDS: SPIRONOLACTONE 25 MG TABLET PO SCH (08:43)
[2019-12-08] MEDS: TAMSULOSIN 0.4 MG CAP.SR.24H PO SCH (08:43)
[2019-12-08] MEDS: CARVEDILOL 3.125 MG TABLET PO SCH ×2 (08:44→21:00)
--- NOTE | 2019-12-08 10:33 | NUR ---
TELE/RN NOTES RECEIVED A PHONE CALL FROM JOE TOWNSEND RN REGARDING THE STATUS OF THE TRANSFER. PER CARY THEY ARE STILL WAITING FOR SOME DISCHARGES TO HAPPEN FOR HIM TO BE TAKEN. PATIENT CONTINUES TO REMAIN IN STABLE CONDITION. WILL CONTINUE TO MONITOR CLOSELY.
[2019-12-08] MEDS: INSULIN REGULAR, HUMAN 100 UNIT/ML 3 ML VIAL SQ PRN (11:38)
[2019-12-08 13:50] LABS: HEMATOCRIT 23 % (39-51); HEMOGLOBIN 7.4 g/dL (13.5-17.5); MEAN CORPUSCULAR HGB CONC 33 g/dl (31.0-36.0); MEAN CORPUSCULAR VOLUME 92 fL (80-96); PLATELET COUNT (AUTO) 265 /CMM (150-450); RED BLOOD CELL COUNT(AUTO) 2.45 MIL/uL (4.5-6.0); WHITE BLOOD COUNT (AUTO) 9.7 K/uL (4.3-11.0)
[2019-12-08] MEDS ORDERED: FUROSEMIDE 20 MG/2 ML VIAL IV ONE (14:30)
--- NOTE | 2019-12-08 14:35 | NUR ---
RELAYED TO DR. OKEEFE CHLORINATOR RECOMMENDATION AND AGREED TO SEND PATIENT TO ICU.
--- NOTE | 2019-12-08 14:35 | NUR ---
TELE/RN NOTES PAGED DR. OKEEFE REGARDING THE RECOMMENDATION OF DR. BOYKIN TO TRANSFER PATIENT TO ICU. AWAITING FOR CALL BACK.
--- NOTE | 2019-12-08 14:35 | NUR ---
PATIENT SEEN AND EVALUATED BY DR. BOYKIN ,PATIENT HAVING SOB,DIAPHRAGMATIC BREATHING,O2 SAT 93% ON 4 LITERS.PALE LOOKING C/O ON AND OFF CHEST DISCOMFORT.PER DR. ROYAL HE RECOMMEND ICU FOR CLOSE MONITORING CONSIDERING PATIENT CARDIAC AND GI HISTORY.
--- NOTE | 2019-12-08 14:45 | NUR ---
ICU/RN PT IS TRANSFERRED FROM TELE UNIT DUE TO SOB. ABG ORDERED.PT IS AWAKE,ALERT.NO PAIN REPORTED AT THIS TIME.LASIX 20 MG IV GIVEN ORDERED.V/S STABLE,AFEBRILE. IV H/L .RIGHT UPPER ARM ML.PT USE URINAL.FAMILY AT BED SIDE.
--- NOTE | 2019-12-08 15:04 | NUR ---
TELE/CLINICAL EDUCATION MANAGER NOTES PATIENT WAS BROUGHT UP TO ICU AND REPORT WAS GIVEN TO LEAH CAMPO. PATIENT PLACED IN ROOM 263. PATIENT WAS IN STABLE CONDITION. ABLE TO MAKE NEEDS KNOWN. NO ACUTE DISTRESS AT THIS TIME. O2 SAT @ 100 PERCENT. PATIENT WAS ABLE TO TOLERATE MEALS AND MEDS WELL. ALL NEEDS ANTICIPATED. CALL LIGHT WITHIN REACHED. BED LOCKED AND IN LOWEST POSITION. WILL CONTINUE TO MONITOR CLOSELY. Addendum: 12/08/19 at 1626 by MARTA MORTENSEN RN TELE/CLINICAL EDUCATION MANAGER NOTES PATIENT WAS BROUGHT UP TO ICU AND REPORT WAS GIVEN TO LEAH CAMPO. PATIENT PLACED IN ROOM 263. PATIENT ABLE TO MAKE NEEDS KNOWN. PATIENT WAS NOTED TO HAVE LABORED SHALLOW BREATHING. O2 SATURATION 100 PERCENT @4LPM. PATIENT WAS ABLE TO TOLERATE MEALS AND MEDS WELL. ALL NEEDS ANTICIPATED. CALL LIGHT WITHIN REACHED. BED LOCKED AND IN LOWEST POSITION. WILL CONTINUE TO MONITOR CLOSELY.
[2019-12-08] MEDS: CEFTRIAXONE 1 G in IV D5W 50 ML IV SCH (15:26)
--- NOTE | 2019-12-08 15:42 | NUR ---
ICU/RN ABG DONE .TROPONIN LEVEL 6.623. MD NOTIFIED.
--- NOTE | 2019-12-08 18:00 | NUR ---
ICU/RN BS-109.PT EATS 100% FROM HIS MEAL TRAY.DUE MEDS ARE GIVEN ORDERED,URINATED 550 ML .V/S STABLE,AFEBRILE.NO PAIN REPORTED AT THIS TIME.
--- NOTE | 2019-12-08 19:45 | NUR ---
ICU/ASSISTANT ATTORNEY GENERAL RECEIVED REPORT FROM DAY NURSE. SEE NURSING FLOWSHEET FOR ASSESSMENT. THERE IS NO SKIN ISSUES THAT NEEDS TO BE ADDRESSED ON THE FLOWSHEET. PT IS CURRENTLY ON 4 LITERS NC, TOLERATING THIS WITH SATURATION AT 100%. NO ACUTE DISTRESS SEEN AT THIS TIME, PT TURNS AND REPOSITIONED SELF FOR COMFORT AND CARE, WILL CONTINUE TO MONITOR THIS PT. CALL LIGHT WITHIN REACH. NO SHORTNESS OF BREATH SEEN AT THIS TIME HOWEVER WILL CONTINUE TO MONITOR THIS PT.
[2019-12-08] MEDS: GABAPENTIN 300 MG CAPSULE PO SCH (21:32)
[2019-12-08] MEDS: ATORVASTATIN 40 MG TABLET PO SCH (21:32)
--- NOTE | 2019-12-08 21:38 | NUR ---
ICU/SALES AND BUSINESS DEVELOPMENT MANAGER COREG 2100 WAS HELD DUE TO LOW BLOOD PRESSURE AT 100/57 WITH HEART RATE 69.
--- NOTE | 2019-12-08 22:30 | NUR ---
ICU/RADIO REPAIRER DOMESTIC PT HAD 2200 TROP CAME BACK AT 6.057, WHICH HAS BEEN DECREASING SINCE THIS MORNING. TROP IS TRENDING IN EXPECTED DIRECTION. WILL CONTINUE TO MONITOR THIS PT.
[2019-12-09] VITALS (26 sets, daily range): BP systolic 100–137; BP diastolic 49–91
--- NOTE | 2019-12-09 00:24 | NUR ---
ICU/FIELD PIPELINES SUPERVISOR PT'S 2200 BLOOD SUGAR IS 129, THERE IS NO COVERAGE FOR THIS PER MD'S ORDER. WILL CONTINUE TO MONITOR HIS BLOOD SUGAR ORDERED BY MD AND HOSPITAL PROTOCOL.
[2019-12-09 07:09] LABS: BASOPHILS # (AUTO) 0.1 /CMM (0.0-0.2); BASOPHILS % (AUTO) 0.6 % (0.0-2.0); EOSINOPHILS % (AUTO) 3.2 % (0.0-6.0); HEMATOCRIT 24 % (39-51); HEMOGLOBIN 7.9 g/dL (13.5-17.5); LYMPHOCYTES # (AUTO) 0.9 /CMM (0.8-4.8); LYMPHOCYTES % (AUTO) 10.7 % (20.0-44.0); MEAN CORPUSCULAR HGB CONC 33 g/dl (31.0-36.0); MEAN CORPUSCULAR VOLUME 92 fL (80-96); MONOCYTES # (AUTO) 0.5 /CMM (0.1-1.30); MONOCYTES % (AUTO) 6.3 % (2.0-12.0); NEUTROPHILS # (AUTO) 6.7 /CMM (1.8-8.9); NEUTROPHILS % (AUTO) 79.2 % (43.0-81.0); PLATELET COUNT (AUTO) 294 /CMM (150-450); RED BLOOD CELL COUNT(AUTO) 2.57 MIL/uL (4.5-6.0); WHITE BLOOD COUNT (AUTO) 8.5 K/uL (4.3-11.0)
--- NOTE | 2019-12-09 07:50 | NUR ---
PHYSICAL THERAPY DIRECTOR: pt.is A/Ox3, no c/o now, no any pain, SR, SBP over 100, no pacing, O2sat.over 96% on 4L n/c, no SOB, H/H 7.9/24, BG 68, took 75% breakfast, orange juice, waiting BMP, instructed for fall prevention measures, POC
[2019-12-09] MEDS: LEVOTHYROXINE SODIUM 100 MCG TABLET PO SCH (08:06)
[2019-12-09] MEDS: BLOOD SUGAR DIAGNOSTIC 1 EACH STRIP IN SCH ×4 (08:06→21:17)
[2019-12-09] MEDS: FLUTICASONE/VILANTEROL 1 EACH BLST.W.DEV IH SCH ×2 (08:07→17:05)
[2019-12-09 08:09] LABS: ALANINE AMINOTRANSFERASE 20 U/L (12-78); ALBUMIN 2.9 g/dL (3.4-5.0); ALKALINE PHOSPHATASE 69 U/L (46-116); ASPARTATE AMINOTRANSFERASE 16 U/L (15-37); BILIRUBIN,TOTAL 0.4 mg/dL (0.2-1.0); CALCIUM, SERUM 7.9 mg/dL (8.5-10.1); CARBON DIOXIDE 27 mmol/L (21-32); CHLORIDE 105 mmol/L (98-107); CREATININE 1.5 mg/dL (0.6-1.3); GLUCOSE 72 mg/dL (74-106); POTASSIUM 4.2 mmol/L (3.5-5.1); SODIUM SERUM 139 mmol/L (136-145); UREA NITROGEN, BLOOD 24 mg/dL (7-18)
--- NOTE | 2019-12-09 08:30 | NUR ---
TIE IN MACHINE OPERATOR: is in room, updated with pt.current status, VS, I/O, labs, ordered: Lasix 40 mg IV once
[2019-12-09] MEDS: GLIMEPIRIDE 4 MG TABLET PO SCH (08:56)
[2019-12-09] MEDS: SPIRONOLACTONE 25 MG TABLET PO SCH (08:57)
[2019-12-09] MEDS: PANTOPRAZOLE 40 MG VIAL IV SCH ×2 (08:57→20:54)
[2019-12-09] MEDS: TAMSULOSIN 0.4 MG CAP.SR.24H PO SCH (08:57)
[2019-12-09] MEDS ORDERED: FUROSEMIDE 40 MG/4 ML VIAL IV SCH (09:00)
[2019-12-09] MEDS: CARVEDILOL 3.125 MG TABLET PO SCH ×2 (10:07→21:23)
--- NOTE | 2019-12-09 10:30 | NUR ---
STUDENT NURSE: is in room, updated with pt.current condition, VS, O2sat., I/O, meds, labs, H/H, see new orders
[2019-12-09] MEDS: INSULIN REGULAR, HUMAN 100 UNIT/ML 3 ML VIAL SQ PRN ×2 (11:45→21:19)
--- NOTE | 2019-12-09 13:22 | NUR ---
CHUCKING MACHINE SET UP OPERATOR: [facility] called: no bed available now, pt.family is in room, got info re orders, VS, labs, POC
[2019-12-09] MEDS: IPRATROPIUM NEB FS 0.5 MG/2.5 ML AMPUL.NEB NEB SCH ×2 (14:04→19:42)
[2019-12-09] MEDS: CEFTRIAXONE 1 G in IV D5W 50 ML IV SCH (15:04)
--- NOTE | 2019-12-09 17:39 | NUR ---
LUMBER GRADER: pt.is A/Ox3, no c/o, no pain, no melena, O2sat. over 92%, SOB with any activity over 3-5mins, SR, no pacing, SBP over 100, waiting chest CT result, no news from [facility], BG 121, 1450 ml urine out after Lasix, PM/skin care done
--- NOTE | 2019-12-09 18:15 | NUR ---
ASSET MANAGEMENT COORDINATOR: pt.refused for bedbath
--- NOTE | 2019-12-09 19:45 | NUR ---
ICU/GUEST SERVICES REPRESENTATIVE RECEIVED REPORT FROM DAY NURSE. SEE NURSING FLOWSHEET FOR ASSESSMENT. THERE IS NO SKIN ISSUES THAT NEEDS TO BE ADDRESSED ON THE FLOWSHEET. PT IS CURRENTLY ON 3 LITERS N/C, TOLERATING THIS WITH SATURATION AT 98-99%. NO ACUTE DISTRESS SEEN AT THIS TIME, PT TURNS AND REPOSITIONED SELF FOR COMFORT AND CARE, WILL CONTINUE TO MONITOR THIS PT. CALL LIGHT WITHIN REACH. NO SHORTNESS OF BREATH SEEN AT THIS TIME HOWEVER WILL CONTINUE TO MONITOR THIS PT.
[2019-12-09] MEDS: ATORVASTATIN 40 MG TABLET PO SCH (21:23)
[2019-12-09] MEDS: GABAPENTIN 300 MG CAPSULE PO SCH (21:23)
--- NOTE | 2019-12-09 22:10 | NUR ---
ICU/LIVESTOCK HAULIER PT'S 2199 BLOOD SUGAR IS 149, WHICH PT GETS 2 UNITS REG. INSULIN. WILL CONTINUE TO MONITOR THIS PT'S SUGAR ORDERED BY MD AND HOSPITAL PROTOCOL. CALL LIGHT WITHIN REACH.
[2019-12-10] VITALS (18 sets, daily range): BP systolic 91–126; BP diastolic 46–70
--- NOTE | 2019-12-10 00:45 | NUR ---
ICU/PHYSICIAN SPECIALIST NO ACUTE RESPIRATORY DISTRESS SEEN AT THIS TIME, WITH SATURATION AT 100% WHILE ON 3 LITERS N/C. PT APPEARS TO BE RESTING COMFORTABLE. CALL LIGHT WITHIN REACH. WILL CONTINUE TO MONITOR THIS PT FOR ANY SUDDEN CHANGES.
[2019-12-10] MEDS: IPRATROPIUM NEB FS 0.5 MG/2.5 ML AMPUL.NEB NEB SCH ×5 (01:20→19:56)
--- NOTE | 2019-12-10 02:55 | NUR ---
ICU/UNIVERSITY COUNSELOR NO ACUTE RESPIRATORY DISTRESS SEEN AT THIS TIME, WITH SATURATION AT 100% WHILE ON 3 LITERS N/C. PT APPEARS TO BE RESTING COMFORTABLE. CALL LIGHT WITHIN REACH. WILL CONTINUE TO MONITOR THIS PT FOR ANY SUDDEN CHANGES.
--- NOTE | 2019-12-10 04:35 | NUR ---
ICU/SOFTWARE TECHNICIAN AM LABS WERE DONE, AWAIT FOR ANY CRITICAL LAB VALUES.
[2019-12-10 05:22] LABS: BASOPHILS # (AUTO) 0.1 /CMM (0.0-0.2); EOSINOPHILS % (AUTO) 2.6 % (0.0-6.0); HEMATOCRIT 24 % (39-51); LYMPHOCYTES % (AUTO) 10.4 % (20.0-44.0); MEAN CORPUSCULAR HGB CONC 33 g/dl (31.0-36.0); MEAN CORPUSCULAR VOLUME 92 fL (80-96); MONOCYTES # (AUTO) 0.5 /CMM (0.1-1.30); MONOCYTES % (AUTO) 5.7 % (2.0-12.0); NEUTROPHILS # (AUTO) 7.5 /CMM (1.8-8.9); NEUTROPHILS % (AUTO) 80.3 % (43.0-81.0); PLATELET COUNT (AUTO) 318 /CMM (150-450); RED BLOOD CELL COUNT(AUTO) 2.61 MIL/uL (4.5-6.0); WHITE BLOOD COUNT (AUTO) 9.3 K/uL (4.3-11.0)
[2019-12-10 05:26] LABS: CALCIUM, SERUM 8.2 mg/dL (8.5-10.1); CARBON DIOXIDE 29 mmol/L (21-32); CHLORIDE 104 mmol/L (98-107); CREATININE 1.4 mg/dL (0.6-1.3); GLUCOSE 73 mg/dL (74-106); MAGNESIUM 1.9 mg/dL (1.8-2.4); PHOSPHORUS 4.6 mg/dL (2.5-4.9); POTASSIUM 4.7 mmol/L (3.5-5.1); SODIUM SERUM 140 mmol/L (136-145); UREA NITROGEN, BLOOD 26 mg/dL (7-18)
--- NOTE | 2019-12-10 06:00 | NUR ---
ICU/LAMINATOR HAND TROP 4.528 THIS IS TRENDING DOWN IN EXPECTED DIRECTION. WILL CONTINUE TO MONITOR THIS PT AND HIS LABS
[2019-12-10] MEDS: LEVOTHYROXINE SODIUM 100 MCG TABLET PO SCH (07:29)
[2019-12-10] MEDS: BLOOD SUGAR DIAGNOSTIC 1 EACH STRIP IN SCH ×4 (07:29→22:06)
--- NOTE | 2019-12-10 08:10 | NUR ---
SILVERWARE SUPERVISOR: pt is A/Ox3, no pain now, no c/o now, on 3L n/c now, O2sat. over 94%, but easy to be desaturated/tachypneic/tachycardic with activity, still very weak, SR now, no pacing, SBP over 100, BG 73, H/H 8.0/24, no acute bleeding by report, troponin 4.5/down, I/O last 2 days negative, Lasix 40 mg IV daily per last order, stiil waiting [facility] bed, is in room, updated with all above, chest CT result, see new orders
[2019-12-10] MEDS ORDERED: FUROSEMIDE 40 MG/4 ML VIAL IV ONE (09:00)
[2019-12-10] MEDS: GLIMEPIRIDE 4 MG TABLET PO SCH (09:08)
[2019-12-10] MEDS: SPIRONOLACTONE 25 MG TABLET PO SCH (09:08)
[2019-12-10] MEDS: CARVEDILOL 3.125 MG TABLET PO SCH ×2 (09:09→21:11)
[2019-12-10] MEDS: TAMSULOSIN 0.4 MG CAP.SR.24H PO SCH (09:09)
[2019-12-10] MEDS: FUROSEMIDE 40 MG/4 ML VIAL IV SCH (09:09)
[2019-12-10] MEDS: PANTOPRAZOLE 40 MG VIAL IV SCH ×2 (09:09→21:11)
--- NOTE | 2019-12-10 10:00 | NUR ---
OYSTER SHUCKER: Enio is not in medroom/called to pharmacy to get it, updated with pt.current condition
[2019-12-10] MEDS: FLUTICASONE/VILANTEROL 1 EACH BLST.W.DEV IH SCH ×2 (11:02→17:05)
--- NOTE | 2019-12-10 11:15 | NUR ---
POCKETBOOK MAKER: pharmacy confirmed: no more than 40mg IV dose order today/actual info in emar once dose 40 mgIV Lasix is d/clarisa today
[2019-12-10] MEDS: INSULIN REGULAR, HUMAN 100 UNIT/ML 3 ML VIAL SQ PRN ×2 (11:48→17:48)
--- NOTE | 2019-12-10 13:39 | NUR ---
EYELET ROW MARKER: pt is transferred to [facility] after full report was given for LEAH Trujillo
--- NOTE | 2019-12-10 13:47 | NUR ---
CHEMIST INSTRUMENTATION NOTE RECEIVED PT AWAKE & ALERT FROM ICU VIA BED. APPEARS CALM & RELAXED. NO C/O PAIN OR DISCOMFORT. FAMILY AT BEDSIDE. NO SIGNS OF DISTRESS. PT IS ON NC 3L. PT HAS AR MIDLINE AND L AC IV LINE G18. SAFETY MEASURES REINFORCED. HOB ELEVATED. BED ON LOCK AND LOWEST POSITION. WILL CONTINUE TO MONITOR.
--- NOTE | 2019-12-10 18:51 | NUR ---
CLOSING RN NOTE PT IN BED AWAKE WITH HOB ELEVATED. APPEARS CALM AND RELAXED. NO SIGNS OF DISTRESS. NO CO PAIN OR DISCOMFORT. AR MIDLINE IV AND L AC IV LINE IN PLACE AND PATENT. PT IS ABLE TO COMMUNICATE NEEDS. VITAL SIGNS WITHIN NORMAL LIMITS. CALL LIGHT WITHIN REACH. BED AT LOWEST AND LOCKED POSITION. REINFORCED SAFETY MEASURES. ALL NEEDS MET. WILL ENDORSE TO THE NEXT SHIFT.
--- NOTE | 2019-12-10 19:28 | NUR ---
RN NOTE ENDORSED TO RN FOR VIDAL
--- NOTE | 2019-12-10 19:30 | NUR ---
RN OPENING NOTES: Received pt resting in bed, awake and A&Ox4. On 3L/min NC tolerating well. No respiratory distress noted, breathing even and unlabored. On tele monitor showing SR. Has left chest pacemaker. Pt able to ambulate w/ assist to bathroom, has urinal at bedside as well. Has right UA midline #18 patent and flushing, dressing c/d/i. Pt denies any pain at this time. Safety measures in place. Bed in lowest and locked position, side rails up x2, call light within reach. Will continue to monitor.
[2019-12-10] MEDS: ATORVASTATIN 40 MG TABLET PO SCH (21:11)
[2019-12-10] MEDS: GABAPENTIN 300 MG CAPSULE PO SCH (21:11)
[2019-12-11] VITALS: BP 122/71
[2019-12-11] MEDS: IPRATROPIUM NEB FS 0.5 MG/2.5 ML AMPUL.NEB NEB SCH ×2 (01:30→07:50)
[2019-12-11 04:00] VITALS: BP 101/64
--- NOTE | 2019-12-11 07:16 | NUR ---
RN CLOSING NOTE PT IN BED AWAKE WITH HOB ELEVATED. APPEARS CALM AND RELAXED. NO SIGNS OF DISTRESS WHILE ON 3L OF O2 VIA NC. NO COMPLAINTS OF PAIN OR DISCOMFORT. AR MIDLINE IV AND L AC IV LINE IN PLACE AND PATENT. VITAL SIGNS WITHIN NORMAL LIMITS. SINUS RHTHYM ON TELE MONITOR. CALL LIGHT WITHIN REACH. BED AT LOWEST AND LOCKED POSITION. REINFORCED SAFETY MEASURES. ALL NEEDS MET AND ATTENDED TO. WILL ENDORSE TO MORNING SHIFT.
--- NOTE | 2019-12-11 07:30 | NUR ---
FUNMILAYO RN OPENING NOTES: RECEIVED PT IN BED, AAO X 4, ON 3L O2 NASAL CANULA, TOLERATING WELL, RESPIRATION UNLABORED, SR HR 88 ON MONITOR, DENIES PAIN OR DISCOMFORT, LEFT CHEST PACEMAKER, AR MIDLINE , CDI DRESSING, AND LEFT AC G 20 IV, BOTH FLUSHES WELL, BOTH SITES CLEAR, NO SKIN ISSUES, ON CARDIAC DIET, PLAN OF CARE DISCUSSED WITH PATIENT, VERBALIZED UNDERSTANDING, SAFETY MEASURES IN PLACE. BED LOW/LOCKED, SR UP X 2, CALL IGHT WITHIN REACH, WILL CONT TO MONITOR.
[2019-12-11 08:00] VITALS: BP 92/53
[2019-12-11] MEDS: BLOOD SUGAR DIAGNOSTIC 1 EACH STRIP IN SCH ×2 (08:11→12:33)
[2019-12-11] MEDS: LEVOTHYROXINE SODIUM 100 MCG TABLET PO SCH (08:13)
--- NOTE | 2019-12-11 08:22 | NUR ---
RN NOTES ACCUCHECK DONE. BS 72 MG/DL. NO INSULIN COVERAGE GIVEN PATIENT HAVING BREAKFAST.
[2019-12-11] MEDS: PANTOPRAZOLE 40 MG VIAL IV SCH (08:31)
[2019-12-11] MEDS: GLIMEPIRIDE 4 MG TABLET PO SCH (08:32)
[2019-12-11] MEDS: TAMSULOSIN 0.4 MG CAP.SR.24H PO SCH (08:32)
[2019-12-11] MEDS: SPIRONOLACTONE 25 MG TABLET PO SCH (08:33)
[2019-12-11] MEDS: FUROSEMIDE 40 MG/4 ML VIAL IV SCH (08:34)
[2019-12-11] MEDS: CARVEDILOL 3.125 MG TABLET PO SCH (08:34)
[2019-12-11] MEDS: FLUTICASONE/VILANTEROL 1 EACH BLST.W.DEV IH SCH (08:35)
--- NOTE | 2019-12-11 11:35 | NUR ---
RN NOTES RECEIVED A PHONE CALL FROM [facility]. PER THEM, THEIR EMERGENCY ROOM IS FULL AND THERE'S NO BED AVAILABLE AT THIS TIME. MARICHUY AT CASE MANAGEMENT INFORMED.
[2019-12-11 12:00] VITALS: BP 101/62
--- NOTE | 2019-12-11 12:35 | NUR ---
RN NOTES PER , SHE ASKED IF SHE SAID SHE WILL GO HOME FIRST AND GET SOME CLOTHES FOR HER SO THAT THEY WILL JUST GO STRAIGHT TO [facility].
--- NOTE | 2019-12-11 12:42 | NUR ---
RN NOTES ACCUCHECK DONE. BS 109 MG/DL. NO INSULIN COVERAGE GIVEN PATIENT HAVING LUNCH.
--- NOTE | 2019-12-11 14:23 | NUR ---
RN NOTES PATIENT AND DECIDED TO GO HOME AGAINST MEDICAL ADVISE. PATIENT WILL GO STRAIGHT TO [facility] ACCORDING TO THEM. PATIENT WAS SEEN BY DR. WADE AND DR. AVALOS EARLIER FOR EITHER CARDIAC STENT VS OPEN HEART SURGERY. EXPLAINED THE BENEFITS AND RISK OF DOING AGAINST MEDICAL ADVISE. ALL IV ACCESS REMOVED, PRESSURE APPLIED, NO BLEEDING, DRESSING IN PLACE. ALL BELONGINGS CHECKED AND RETURNED. ALL PAPERWORKS SIGNED. PATIENT WILL TAKE UBER ACCOMPANIED BY GOING TO [facility]. Addendum: 12/11/19 at 1539 by JELLY SAVAGE RN ADDENDUM INCIDENT REPORT ON FILE Unique Id: [id number]
== END 2019-12-11 14:45 | disposition left against medical advice (07) | DRG 377 ==
LOC: ER 05:41 → ICU 10:10 → TELE1 12-04 11:01 → ICU 12-08 14:49 → TELE1 12-10 13:26 → TELE-TD 12-10 20:17
PROVIDERS: ADMIT Nurse Practitioner Acute Care; ATTEND Internal Medicine
PROC: 05H933Z Insertion of Infusion Device into Right Brachial Vein, Percutaneous Approach (ICD-10-PCS; 2019-12-03)
PROC: 30233N1 Transfusion of Nonautologous Red Blood Cells into Peripheral Vein, Percutaneous Approach (ICD-10-PCS; 2019-12-03)
PROC: 0DJ08ZZ Inspection of Upper Intestinal Tract, Via Natural or Artificial Opening Endoscopic (ICD-10-PCS; principal; 2019-12-05)
DX: K55.21 Angiodysplasia of colon with hemorrhage (principal); I21.A1 Myocardial infarction type 2; N17.0 Acute kidney failure with tubular necrosis; D62 Acute posthemorrhagic anemia; I13.0 Hypertensive heart and chronic kidney disease with heart failure and stage 1 through stage 4 chronic kidney disease, or unspecified chronic kidney disease; K76.6 Portal hypertension; J98.11 Atelectasis; I50.32 Chronic diastolic (congestive) heart failure; E11.22 Type 2 diabetes mellitus with diabetic chronic kidney disease; Z95.810 Presence of automatic (implantable) cardiac defibrillator; Z95.5 Presence of coronary angioplasty implant and graft; Z95.1 Presence of aortocoronary bypass graft; Z87.891 Personal history of nicotine dependence; Z87.01 Personal history of pneumonia (recurrent); Z86.73 Personal history of transient ischemic attack (TIA), and cerebral infarction without residual deficits; N40.0 Benign prostatic hyperplasia without lower urinary tract symptoms; N18.9 Chronic kidney disease, unspecified; M48.00 Spinal stenosis, site unspecified; N28.1 Cyst of kidney, acquired; I25.10 Atherosclerotic heart disease of native coronary artery without angina pectoris; Z79.84 Long term (current) use of oral hypoglycemic drugs; I25.2 Old myocardial infarction; E03.9 Hypothyroidism, unspecified; I27.20 Pulmonary hypertension, unspecified; I25.5 Ischemic cardiomyopathy; I70.8 Atherosclerosis of other arteries; K21.9 Gastro-esophageal reflux disease without esophagitis; K57.30 Diverticulosis of large intestine without perforation or abscess without bleeding
CPT/HCPCS: 36410; 36415; 36600; 71045-TC; 71250-TC; 76770-TC; 80048-TC; 80053-TC; 80061-TC; 80076-TC; 81000-TC; 82550-TC; 82570-TC; 82728-TC; 82803-TC; 82962-TC; 83540-TC; 83735-TC; 83970; 84100-TC; 84155; 84155-TC; 84165; 84300-TC; 84439-TC; 84443-TC; 84484-TC; 85025-TC; 85027-TC; 85730-TC; 86850-TC; 86921-TC; 87081-TC; 87086-TC; 87186-TC; 93307-TC; 94799-TC; C1769; C9113; G0378; J0696; J1815; J1940; J2270; J2405; J3490; J7030; J7040; J7050; J7060; P9016-BL

== ENCOUNTER 2020-01-04 15:15 | Inpatient (IN) | payer MEDICARE, OTHER ==
[~2020-01-04] VITALS: Ht 162.6 cm; Wt 78.5 kg
[~2020-01-04 15:15] MED LIST: ASPI-1152 PO; ATOR40TA PO; CLOP75TA15 PO; CYAN-51 PO; FERR325T24 PO; FLUT1BLS12 IH; FOLI0.4T2 PO; FURO-144 PO; GABA-534 PO; GLIM4TAB PO; INSU100I26 SQ; LEVO100T9 PO; METO25TA3 PO; NITR0.4T48 SL; POTA10TA10 PO; SACU1TAB PO; SITA1TAB6 PO; SPIR25TA PO; TAMS-12 PO
--- NOTE | 2020-01-04 15:18 | NUR ---
BIB Family From Home "Had Colonoscopy 1wk ago was told to come back to ER if he has any symptoms. Today black stools/weak", TO ER BED 10, HOOKED TO MONITOR, CHANGEDT O HOSP GOWN, WARM BLANKET PROVIDED. PATIENT NOTED PALE. AWAITING MD NAVA.
--- NOTE | 2020-01-04 15:51 | NUR ---
DR EUCEDA AT BEDSIDE FOR EVAL
[2020-01-04] MEDS ORDERED: PANTOPRAZOLE 40 MG VIAL IV ONE (16:00)
[2020-01-04] MEDS ORDERED: PANTOPRAZOLE 40 MG VIAL ONE (16:29)
[2020-01-04 16:44] LABS: CALCIUM, SERUM 8.8 mg/dL (8.5-10.1); CARBON DIOXIDE 28 mmol/L (21-32); CHLORIDE 102 mmol/L (98-107); CREATININE 1.4 mg/dL (0.6-1.3); GLUCOSE 232 mg/dL (74-106); POTASSIUM 4.5 mmol/L (3.5-5.1); SODIUM SERUM 138 mmol/L (136-145); UREA NITROGEN, BLOOD 33 mg/dL (7-18)
[2020-01-04] MEDS ORDERED: CHOL100062 PO (16:45)
[2020-01-04] MEDS ORDERED: FLUT1DIS3 IH (16:45)
[2020-01-04] MEDS ORDERED: POTA8TAB3 PO (16:45)
[2020-01-04] MEDS ORDERED: CALC500T52 PO (16:45)
[2020-01-04] MEDS ORDERED: IPRA3AMP23 IH (16:45)
[2020-01-04] MEDS ORDERED: SIME80TA15 PO (16:45)
[2020-01-04] MEDS ORDERED: INSU100V11 SQ (16:45)
[2020-01-04] MEDS ORDERED: PANT40TA2 PO (16:45)
[2020-01-04] MEDS ORDERED: ACET-868 PO (16:45)
[2020-01-04] MEDS ORDERED: ISOS10TA2 PO (16:45)
[2020-01-04] MEDS ORDERED: ASPI-1169 PO (16:45)
[2020-01-04] MEDS ORDERED: INSU100V7 SQ (16:45)
[2020-01-04] MEDS ORDERED: BLOO-668 IN (16:45)
[2020-01-04] MEDS ORDERED: DICL100G16 TP (16:45)
[2020-01-04 16:50] LABS: ALANINE AMINOTRANSFERASE 22 U/L (12-78); ALBUMIN 3.5 g/dL (3.4-5.0); ALKALINE PHOSPHATASE 81 U/L (46-116); ASPARTATE AMINOTRANSFERASE 9 U/L (15-37); BASOPHILS # (AUTO) 0.1 /CMM (0.0-0.2); BASOPHILS % (AUTO) 0.8 % (0.0-2.0); BILIRUBIN,DIRECT 0.1 mg/dL (0.0-0.2); BILIRUBIN,TOTAL 0.4 mg/dL (0.2-1.0); EOSINOPHILS % (AUTO) 1.1 % (0.0-6.0); HEMATOCRIT 22 % (39-51); HEMOGLOBIN 7.1 g/dL (13.5-17.5); LIPASE 161 U/L (73-393); LYMPHOCYTES # (AUTO) 1.3 /CMM (0.8-4.8); LYMPHOCYTES % (AUTO) 15.3 % (20.0-44.0); MEAN CORPUSCULAR HGB CONC 33 g/dl (31.0-36.0); MEAN CORPUSCULAR VOLUME 91 fL (80-96); MONOCYTES # (AUTO) 0.5 /CMM (0.1-1.30); MONOCYTES % (AUTO) 5.5 % (2.0-12.0); NEUTROPHILS # (AUTO) 6.4 /CMM (1.8-8.9); NEUTROPHILS % (AUTO) 77.3 % (43.0-81.0); PLATELET COUNT (AUTO) 337 /CMM (150-450); RED BLOOD CELL COUNT(AUTO) 2.39 MIL/uL (4.5-6.0); TOTAL PROTEIN, SERUM 7.6 g/dL (6.4-8.2); WHITE BLOOD COUNT (AUTO) 8.3 K/uL (4.3-11.0)
--- NOTE | 2020-01-04 16:54 | NUR ---
GOT BED 313-1
--- NOTE | 2020-01-04 17:08 | NUR ---
CALLED JAZMIN ITS JOANNEZUMA
--- NOTE | 2020-01-04 17:16 | NUR ---
CALLED MIKAEL MCINTYRE [phone].
--- NOTE | 2020-01-04 17:50 | NUR ---
REPORT GIVEN TO CELINA RN OF MS UNIT
[2020-01-04 18:10] VITALS: BP 107/56
--- NOTE | 2020-01-04 18:43 | NUR ---
MS RN ADMITTING NOTES ADMITTED TO UNIT A 69 Y/O MALE FROM . [facility]IA [facility] AT 1803 ACCOMPANIED BY ER TRANSPORTER. PT IS A/O X4. ABLE TO MAKE NEEDS KNOWN WITH NO C/O PAIN OR DISCOMFORTS AT THIS TIME. PT IS AMBULATORY WITH STEADY GAIT. PT ORIENTED TO ROOM AND STAFF. V/S TAKEN AND RECORDED. PT WITH DIAGNOSIS OF RECTAL BLEEDING, NO BLEEDING NOTED AT THIS TIME. ON ROOM AIR, TOLERATING WELL WITH NO SOB NOTED. SKIN IS INTACT. IV ACCESS NOTED ON RAC G #20 INTACT, PATENT AND FLUSHES WELL. SAFETY MEASURES INITIATED: BED PLACED IN LOWEST LOCKED POSITION WITH SIDE-RAILS UP X2. CALL LIGHT WITHIN EASY REACH OF PT. DR BONILLA INFORMED OF PT'S ADMISSION TO UNIT WITH ORDER TO PLACE PT ON NPO AT THIS TIME. WILL CONTINUE TO MONITOR ACCORDINGLY.
[2020-01-04] MEDS ORDERED: MAG HYDROX/AL HYDROX/SIMETH 30 ML UDC PO PRN (19:00)
[2020-01-04] MEDS ORDERED: ONDANSETRON HCL/PF 4 MG/2 ML VIAL IVP PRN (19:00)
[2020-01-04] MEDS ORDERED: ZOLPIDEM TARTRATE 5 MG TABLET PO PRN (19:00)
[2020-01-04] MEDS ORDERED: Z GUARD REMEDY 2 OZ OINT TP PRN (19:00)
[2020-01-04] MEDS ORDERED: MAGNESIUM HYDROXIDE 30 ML UDC PO PRN (19:00)
[2020-01-04] MEDS ORDERED: ACETAMINOPHEN 325 MG TABLET PO PRN (19:00)
[2020-01-04] MEDS ORDERED: HYDROCODONE/APAP 5/325MG 1 EACH TABLET PO PRN (19:00)
[2020-01-04 19:30] VITALS: BP 97/52
--- NOTE | 2020-01-04 19:53 | NUR ---
MS RN NOTES PATIENT IN BED, AWAKE, ALERT AND ORIENTED X 4. BREATHING EVEN AND UNLABORED ON ROOM AIR. SHOWS NO SIGNS OF ACUTE RESPIRATORY DISTRESS, NO ACUTE PAIN. IV ON RAC 20G RUNNING D5 1/2 MS AT 75ML/HR. SHOWS NO SIGNS OF INFILTRATION, NO REDNESS. SAFETY PRECAUTIONS IN PLACE. BED IN LOWEST POSITION, LOCKED, AND CALL LIGHT KEPT WITHIN REACH. WILL CONTINUE TO MONITOR.
[2020-01-04] MEDS: IV D5/0.45 NACL 1,000 ML IV PRN (19:59)
[2020-01-04 20:00] VITALS: BP 97/52
[2020-01-05 06:24] LABS: BASOPHILS % (AUTO) 0.7 % (0.0-2.0); EOSINOPHILS % (AUTO) 1.6 % (0.0-6.0); HEMATOCRIT 21 % (39-51); LYMPHOCYTES # (AUTO) 1.2 /CMM (0.8-4.8); LYMPHOCYTES % (AUTO) 18.5 % (20.0-44.0); MEAN CORPUSCULAR HGB CONC 34 g/dl (31.0-36.0); MEAN CORPUSCULAR VOLUME 89 fL (80-96); MONOCYTES # (AUTO) 0.4 /CMM (0.1-1.30); MONOCYTES % (AUTO) 6.4 % (2.0-12.0); NEUTROPHILS # (AUTO) 4.8 /CMM (1.8-8.9); NEUTROPHILS % (AUTO) 72.8 % (43.0-81.0); PLATELET COUNT (AUTO) 296 /CMM (150-450); RED BLOOD CELL COUNT(AUTO) 2.31 MIL/uL (4.5-6.0); WHITE BLOOD COUNT (AUTO) 6.6 K/uL (4.3-11.0)
--- NOTE | 2020-01-05 06:32 | NUR ---
MS RN NOTES RECEIVED CALL FROM LAB, HGB 7.0 AND HCT 21 AT 0631. WILL CONTINUE TO F/U.
--- NOTE | 2020-01-05 06:33 | NUR ---
MS RN NOTES MESSAGE DR. FLORES REGARDING CRITICAL LAB. NO NEW ORDERED GIVEN, ORDERED TO WATCH FOR ACTIVE BLEEDING. WILL CONTINUE TO MONITOR.
--- NOTE | 2020-01-05 06:36 | NUR ---
MS RN NOTES PATIENT IN BED, ASLEEP, ALERT AND ORIENTED X 4. BREATHING EVEN AND UNLABORED ON ROOM AIR. SHOWS NO SIGNS OF ACUTE RESPIRATORY DISTRESS, NO ACUTE PAIN. IV ON RAC 20G RUNNING D5 1/2 MS AT 75ML/HR. SHOWS NO SIGNS OF INFILTRATION, NO REDNESS. ITS CLEAN DRY AND INTACT. ALL DUE MEDICATIONS GIVEN. SAFETY PRECAUTIONS IN PLACE. BED IN LOWEST POSITION, LOCKED, AND CALL LIGHT KEPT WITHIN REACH. WILL ENDORSE TO ONCOMING NURSE.
--- NOTE | 2020-01-05 06:48 | NUR ---
MS RN NOTES PATIENT SIGNED FOR CONSENT TO GET COPY OF THE RESULTS OF CAPSULE EGD AND ENDOSCOPY FROM [facility]. SENT FAX TO [facility] MEDICAL RECORD . WILL CONTINUE TO F/U.
[2020-01-05 06:49] LABS: CALCIUM, SERUM 8.7 mg/dL (8.5-10.1); CREATININE 1.3 mg/dL (0.6-1.3); MAGNESIUM 1.8 mg/dL (1.8-2.4); PHOSPHORUS 4.1 mg/dL (2.5-4.9); POTASSIUM 3.9 mmol/L (3.5-5.1)
[2020-01-05 07:09] LABS: THYROID STIMULATING HORMONE 10.29 uIU/mL (0.358-3.74)
--- NOTE | 2020-01-05 07:54 | NUR ---
MS RN OPENING NOTES RECEIVED PATIENT IN BED, ASLEEP. PATIENT ON ROOM AIR BREATHING EVEN AND UNLABORED. NO S/S OF SOB AT THIS TIME. IV ON RAC 20G RUNNING D5 1/2 MS AT 75ML/HR. SHOWS NO SIGNS OF INFILTRATION, NO REDNESS. NO SIGNS OF PAIN NOTED SUCH MOANING, FACIAL GRIMACING OR GUARDING. SAFETY PRECAUTIONS IN PLACE; BED IN LOW POSITION AND LOCKED, RAILS UP X2, CALL LIGHT WITHIN REACH. WILL CONTINUE TO MONITOR PATIENT.
[2020-01-05 08:32] VITALS: BP 98/48
[2020-01-05] MEDS: PANTOPRAZOLE 40 MG VIAL IV SCH ×2 (08:37→21:08)
[2020-01-05] MEDS: IV D5/0.45 NACL 1,000 ML IV PRN (09:39)
[2020-01-05 16:00] VITALS: BP 130/66
[2020-01-05] MEDS ORDERED: SIMETHICONE 80 MG TAB.CHEW PO PRN (19:00)
[2020-01-05] MEDS ORDERED: NITROGLYCERIN 0.4 MG/TAB BOTTLE SL PRN (19:00)
--- NOTE | 2020-01-05 19:03 | NUR ---
MS RN CLOSING NOTES PATIENT IN BED, AWAKE, A/O X4. PATIENT ON ROOM AIR BREATHING EVEN AND UNLABORED. NO S/S OF SOB AT THIS TIME. IV ON R WRIST GAUGE # 22 INFUSING D5 1/2 MS AT 75ML/HR. SHOWS NO SIGNS OF INFILTRATION, NO REDNESS. NO PAIN REPORTED BY PATIENT. ALL NEEDS ATENDED TO THROUGHOUT THE DAY. SAFETY PRECAUTIONS IN PLACE; BED IN LOW POSITION AND LOCKED, RAILS UP X2, CALL LIGHT WITHIN REACH. WILL CONTINUE TO MONITOR PATIENT.
[2020-01-05] MEDS ORDERED: IPRATROPIUM NEB FS 0.5 MG/2.5 ML AMPUL.NEB NEB PRN (19:30)
[2020-01-05] MEDS ORDERED: ALBUTEROL FS 2.5 MG/0.5 ML VIAL.NEB NEB PRN (19:30)
[2020-01-05 20:00] VITALS: BP 123/60
--- NOTE | 2020-01-05 20:09 | NUR ---
RN OPENING NOTES Received patient awake on bed on RA, no SOB/respiratory distress noted. On NPO as ordered, no complaints made at this time. Offered ice chips to patient. Kept on bed clean, dry and comfortable. Call light within easy reach. Will continue to monitor accordingly.
[2020-01-05] MEDS: BLOOD SUGAR DIAGNOSTIC 1 EACH STRIP IN SCH (21:08)
[2020-01-05] MEDS: TAMSULOSIN 0.4 MG CAP.SR.24H PO SCH ×2 (21:09→22:31)
[2020-01-05] MEDS: ATORVASTATIN 40 MG TABLET PO SCH ×2 (21:09→22:31)
[2020-01-06] MEDS: IV D5/0.45 NACL 1,000 ML IV PRN (03:59)
[2020-01-06 06:28] LABS: BASOPHILS # (AUTO) 0.1 /CMM (0.0-0.2); BASOPHILS % (AUTO) 0.7 % (0.0-2.0); EOSINOPHILS % (AUTO) 1.9 % (0.0-6.0); HEMATOCRIT 21 % (39-51); HEMOGLOBIN 7.1 g/dL (13.5-17.5); LYMPHOCYTES # (AUTO) 1.2 /CMM (0.8-4.8); LYMPHOCYTES % (AUTO) 15.7 % (20.0-44.0); MEAN CORPUSCULAR HGB CONC 34 g/dl (31.0-36.0); MEAN CORPUSCULAR VOLUME 90 fL (80-96); MONOCYTES # (AUTO) 0.5 /CMM (0.1-1.30); MONOCYTES % (AUTO) 6.7 % (2.0-12.0); NEUTROPHILS # (AUTO) 5.7 /CMM (1.8-8.9); PLATELET COUNT (AUTO) 287 /CMM (150-450); RED BLOOD CELL COUNT(AUTO) 2.32 MIL/uL (4.5-6.0); WHITE BLOOD COUNT (AUTO) 7.6 K/uL (4.3-11.0)
--- NOTE | 2020-01-06 06:34 | NUR ---
RN CLOSING NOTES Patient asleep, easily awaken. On RA, no SOB/respiratory distress noted at this time. Still on NPO except meds. All nursing needs attended. Due meds given as ordered. Kept on bed clean, dry and comfortable. For GI consult. Endorsed to the next shift.
[2020-01-06 06:56] LABS: CALCIUM, SERUM 8.7 mg/dL (8.5-10.1); CREATININE 1.3 mg/dL (0.6-1.3); MAGNESIUM 1.9 mg/dL (1.8-2.4); PHOSPHORUS 3.7 mg/dL (2.5-4.9); POTASSIUM 3.5 mmol/L (3.5-5.1)
--- NOTE | 2020-01-06 07:05 | NUR ---
RN OPENING NOTES RECEIVED PATIENT IN BED RESTING. A/OX4, ABLE TO MAKE NEEDS KNOWN. AMBULATORY. NOT IN ANY FORM OF DISTRESS. NO SOB. DENIED PAIN OR DISCOMFORT AT THIS TIME. IV ACCESS INTACT AND PATENT. KEPT PATIENT SAFE AND COMFORTABLE. BED IN LOW/LOCKED POSITION, SIDERAILS UP X2, CALL CHRISTOPHE HARRELL. WILL CONT TO MONITOR ACCORDINGLY.
[2020-01-06 08:00] VITALS: BP 100/50
[2020-01-06] MEDS: BLOOD SUGAR DIAGNOSTIC 1 EACH STRIP IN SCH ×4 (08:02→21:41)
[2020-01-06] MEDS: SPIRONOLACTONE 25 MG TABLET PO SCH (08:17)
[2020-01-06] MEDS: CALCIUM CARBONATE (1250) 500 MG TABLET PO SCH ×2 (08:17→18:24)
[2020-01-06] MEDS: LEVOTHYROXINE SODIUM 100 MCG TABLET PO SCH (08:21)
[2020-01-06] MEDS: GABAPENTIN 300 MG CAPSULE PO SCH ×2 (08:22→18:23)
[2020-01-06] MEDS: CHOLECALCIFEROL 1,000 UNIT TABLET (VIT D3) PO SCH (08:22)
[2020-01-06] MEDS: FOLIC ACID 1 MG TABLET PO SCH (08:23)
[2020-01-06] MEDS: FUROSEMIDE 40 MG TABLET PO SCH (08:24)
[2020-01-06] MEDS: PANTOPRAZOLE 40 MG VIAL IV SCH ×2 (08:27→21:41)
[2020-01-06] MEDS: FLUTICASONE/VILANTEROL 1 EACH BLST.W.DEV IH SCH ×2 (08:36→21:50)
[2020-01-06] MEDS: METOPROLOL SUCCINATE 25 MG TAB.SR.24H PO SCH (08:40)
[2020-01-06] MEDS: ISOSORBIDE DINITRATE (10MG) 10 MG TABLET PO SCH ×3 (08:41→17:00)
[2020-01-06 16:00] VITALS: BP 103/53
--- NOTE | 2020-01-06 19:25 | NUR ---
RN CLOSING NOTES PATIENT IN STABLE CONDITION. ALL NEEDS ATTENDED AND PROVIDED. ALL DUE MEDICATIONS GIVEN ORDERED. KEPT PATIENT SAFE AND COMFORTABLE. BED IN LOW/LOCKED POSITION. SIDERAILS UPX2, CALL LIGHT IN REACH. ENDORSED ACCORDINGLY
--- NOTE | 2020-01-06 19:30 | NUR ---
MS RN NOTES RECEIVED ON BED A/O X4,WATCHING TV PROGRAM,WITH IVF INFUSING AT 75ML/HR RATE,SITE PATENT ON RIGHT WRIST.INSTRUCTED NPO AFTER MIDNIGHT FOR PLAN PROCEDURE, AWAITING TO BE SEEN BY GI DOCTOR.CALL LIGHT ION REACH,NEEDS ANTICIPATED.
[2020-01-06 20:00] VITALS: BP 123/54
[2020-01-06 20:58] VITALS: BP 123/54
--- NOTE | 2020-01-06 21:30 | NUR ---
MS RN NOTES ACCU-CHECK BLOOD SUGAR CHECK 107,NO INSULIN COVERAGE.
[2020-01-06] MEDS: ATORVASTATIN 40 MG TABLET PO SCH (21:42)
[2020-01-06] MEDS: TAMSULOSIN 0.4 MG CAP.SR.24H PO SCH (21:42)
--- NOTE | 2020-01-07 | NUR ---
MS RN NOTES STARTED NPO THIS TIME,GOING FOR EGD AT 10 AM TODAY 01/07/[address] MCINTYRE.WILL SIGN CONSENT IN THE MORNING
--- NOTE | 2020-01-07 02:30 | NUR ---
MS RN NOTES REFUSED IVF AT THIS TIME,WANTS TO HOOK IT UP AGAIN THE MORNING.
--- NOTE | 2020-01-07 06:22 | NUR ---
MS RN NOTES ON BED SLEEPING.REFUSED ACID ADJUSTER LAB DRAW,HE WANTS IT LATER.OFFERED TO PUT NEW SALINE LOCK BUT REFUSED.KEPT NPO POST MIDNIGHT FOR EGD AT 10 AM TODAY.CONSENT TO BE SIGN WHEN HE WAKE UP.WILL ENDORSE TO DAY NURSE FOR VIDAL.
[2020-01-07] MEDS: BLOOD SUGAR DIAGNOSTIC 1 EACH STRIP IN SCH ×2 (07:30→11:57)
[2020-01-07] MEDS: LEVOTHYROXINE SODIUM 100 MCG TABLET PO SCH (07:30)
--- NOTE | 2020-01-07 07:31 | NUR ---
rn opening notes Patient received on room air, no sob noted, patient shows no s/s of pain at this time. Patient refused blood draw this AM and stated that she just wants to sleep. NPO since midnight, and all medications will be held as ordered. EGD scheduled today with consent not yet signed. Bed at the lowest setting, call light within reach, side rails up x2.
[2020-01-07 08:00] VITALS: BP 105/60
[2020-01-07] MEDS: FLUTICASONE/VILANTEROL 1 EACH BLST.W.DEV IH SCH (08:02)
[2020-01-07] MEDS: PANTOPRAZOLE 40 MG VIAL IV SCH (08:02)
[2020-01-07] MEDS: ISOSORBIDE DINITRATE (10MG) 10 MG TABLET PO SCH ×2 (08:03→12:52)
[2020-01-07] MEDS: SPIRONOLACTONE 25 MG TABLET PO SCH (08:03)
[2020-01-07] MEDS: FOLIC ACID 1 MG TABLET PO SCH (08:03)
[2020-01-07] MEDS: METOPROLOL SUCCINATE 25 MG TAB.SR.24H PO SCH (08:03)
[2020-01-07] MEDS: CHOLECALCIFEROL 1,000 UNIT TABLET (VIT D3) PO SCH (08:03)
[2020-01-07] MEDS: CALCIUM CARBONATE (1250) 500 MG TABLET PO SCH (08:03)
[2020-01-07] MEDS: GABAPENTIN 300 MG CAPSULE PO SCH (08:03)
[2020-01-07] MEDS: FUROSEMIDE 40 MG TABLET PO SCH (08:03)
[2020-01-07] MEDS ORDERED: ANESTHESIA TRAY IN PYXIS 1 EA TRAY MC ONE (09:48)
--- NOTE | 2020-01-07 11:45 | NUR ---
rn notes Patient s/p EGD. No sob noted, patients vital sign stable and patient denies pain at this time. Resume medications and start patient on clear liquid diet to be progressed as tolerated.
[2020-01-07 12:52] VITALS: BP 120/60
--- NOTE | 2020-01-07 14:36 | NUR ---
rn notes Patient discharged at this time, all belongings with him, nothing missing. All paper work signed and no further questions from patient. Patient taken by family member to go home.
== END 2020-01-07 14:30 | disposition home or self-care (01) | DRG 299 ==
LOC: ER 15:19 → MED 17:18
PROVIDERS: ADMIT Student in an Organized Health Care Education/Training Program; ATTEND Student in an Organized Health Care Education/Training Program
PROC: 0W3P8ZZ Control Bleeding in Gastrointestinal Tract, Via Natural or Artificial Opening Endoscopic (ICD-10-PCS; principal; 2020-01-07)
DX: Q27.33 Arteriovenous malformation of digestive system vessel (principal); N17.0 Acute kidney failure with tubular necrosis; I50.32 Chronic diastolic (congestive) heart failure; I13.0 Hypertensive heart and chronic kidney disease with heart failure and stage 1 through stage 4 chronic kidney disease, or unspecified chronic kidney disease; E11.9 Type 2 diabetes mellitus without complications; I25.2 Old myocardial infarction; Z79.4 Long term (current) use of insulin; Z79.82 Long term (current) use of aspirin; E86.0 Dehydration; I25.10 Atherosclerotic heart disease of native coronary artery without angina pectoris; N40.0 Benign prostatic hyperplasia without lower urinary tract symptoms; Z86.73 Personal history of transient ischemic attack (TIA), and cerebral infarction without residual deficits; Z95.1 Presence of aortocoronary bypass graft; Z79.51 Long term (current) use of inhaled steroids; Z79.899 Other long term (current) drug therapy; Z79.84 Long term (current) use of oral hypoglycemic drugs; E11.22 Type 2 diabetes mellitus with diabetic chronic kidney disease; N18.9 Chronic kidney disease, unspecified; D64.9 Anemia, unspecified; T50.1X5A Adverse effect of loop [high-ceiling] diuretics, initial encounter; Y92.9 Unspecified place or not applicable
CPT/HCPCS: 36415; 71045-TC; 80048-TC; 80061-TC; 80076-TC; 82962-TC; 83690-TC; 83735-TC; 84100-TC; 84439-TC; 84443-TC; 85025-TC; 85730-TC; 86850-TC; 87081-TC; C9113; G0378; J2704; J3490

== ENCOUNTER 2020-12-04 04:59 | Emergency (ER) | payer OTHER ==
[~2020-12-04] VITALS: Ht 162.6 cm; Wt 77.1 kg
[~2020-12-04 04:59] MED LIST changes: +ACET-868 PO; -ASPI-1152 PO; +ASPI-1169 PO; +BLOO-668 IN; +CALC500T52 PO; +CHOL100062 PO; -CLOP75TA15 PO; -CYAN-51 PO; -FLUT1BLS12 IH; +FLUT1DIS3 IH; -FOLI0.4T2 PO; +FOLI0.4T6 PO; -GLIM4TAB PO; -INSU100I26 SQ; +INSU100V11 SQ; +INSU100V7 SQ; +IPRA3AMP23 IH; +ISOS10TA2 PO; +PANT40TA2 PO; -POTA10TA10 PO; +POTA8TAB3 PO; +SIME80TA15 PO; -SITA1TAB6 PO
[2020-12-04] MEDS ORDERED: ACETAMINOPHEN ES 500 MG TABLET ONE (05:05)
--- NOTE | 2020-12-04 05:05 | NUR ---
PT BIBRA C/O FEVER X2 DAYS. PT AAOX 4 SWISS SPEAKING. PT SATING 92% RA. PLACED ON 2L VIA NC 98% SATURATION. PT TACHYCARDIC 105. RIGHT HAND 20G IV INITIATED. BLOOD AND CULTURES OBTAINED AND SENT TO LAB. COVID SWABS SENT TO LAB. PT ATTACHED TO MONITOR AND POX. SKIN IS HOT TO TOUCH. MD ORDERS CARRIED OUT. CALL LIGHT WITHIN REACH. WILL CONTINUE TO MONITOR.
[2020-12-04] MEDS ORDERED: ONDANSETRON HCL/PF 4 MG/2 ML VIAL ONE (05:06)
[2020-12-04 05:28] LABS: BASOPHILS # (AUTO) 0.1 /CMM (0.0-0.2); BASOPHILS % (AUTO) 0.5 % (0.0-2.0); EOSINOPHILS % (AUTO) 0.1 % (0.0-6.0); HEMATOCRIT 29 % (39-51); HEMOGLOBIN 9.8 g/dL (13.5-17.5); LYMPHOCYTES # (AUTO) 0.7 /CMM (0.8-4.8); LYMPHOCYTES % (AUTO) 4.5 % (20.0-44.0); MEAN CORPUSCULAR HGB CONC 34 g/dl (31.0-36.0); MEAN CORPUSCULAR VOLUME 92 fL (80-96); MONOCYTES # (AUTO) 0.9 /CMM (0.1-1.30); MONOCYTES % (AUTO) 5.8 % (2.0-12.0); NEUTROPHILS # (AUTO) 14.5 /CMM (1.8-8.9); NEUTROPHILS % (AUTO) 89.1 % (43.0-81.0); PLATELET COUNT (AUTO) 364 /CMM (150-450); WHITE BLOOD COUNT (AUTO) 16.3 K/uL (4.3-11.0)
[2020-12-04] MEDS ORDERED: ACETAMINOPHEN ES 500 MG TABLET PO ONE (05:30)
[2020-12-04] MEDS ORDERED: ONDANSETRON HCL/PF - ER 4 MG/2 ML VIAL IV ONE (05:30)
--- NOTE | 2020-12-04 05:40 | NUR ---
XRAY AT BEDSIDE
[2020-12-04 05:43] LABS: ALANINE AMINOTRANSFERASE 10 U/L (12-78); ALBUMIN 4.1 g/dL (3.4-5.0); ALKALINE PHOSPHATASE 69 U/L (46-116); ASPARTATE AMINOTRANSFERASE 17 U/L (15-37); BILIRUBIN,DIRECT 0.2 mg/dL (0.0-0.2); BILIRUBIN,TOTAL 1.2 mg/dL (0.2-1.0); CALCIUM, SERUM 9.2 mg/dL (8.5-10.1); CARBON DIOXIDE 23 mmol/L (21-32); CHLORIDE 97 mmol/L (98-107); GLUCOSE 254 mg/dL (74-106); POTASSIUM 4.2 mmol/L (3.5-5.1); SODIUM SERUM 134 mmol/L (136-145); TOTAL PROTEIN, SERUM 8.7 g/dL (6.4-8.2); UREA NITROGEN, BLOOD 24 mg/dL (7-18)
--- NOTE | 2020-12-04 05:52 | NUR ---
PT UNABLE TO GIVE URINE SAMPLE. AWARE
[2020-12-04] MEDS ORDERED: DEXAMETHASONE SOD PHOSPHATE 10 MG/ML VIAL IV ONE (07:00)
[2020-12-04] MEDS ORDERED: CEFTRIAXONE 1GM BAG (ER ONLY) 50 ML IV ONE ×2 (07:00→07:03)
[2020-12-04] MEDS ORDERED: AZITHROMYCIN 500 MG in IV D5W 250 ML IV ONE (07:00)
[2020-12-04] MEDS ORDERED: DEXAMETHASONE SOD PHOSPHATE 10 MG/ML VIAL ONE (07:03)
[2020-12-04] MEDS ORDERED: AZITHROMYCIN 500 MG VIAL ONE (07:03)
--- NOTE | 2020-12-04 07:21 | NUR ---
gave report to ron Dempsey for jean carlos
--- NOTE | 2020-12-04 08:35 | NUR ---
BED 108
--- NOTE | 2020-12-04 09:03 | NUR ---
PATIENT PRESENTED TO DR. PEREZ. REPORT GIVEN TO FANNIE LYNN.
--- NOTE | 2020-12-04 09:07 | NUR ---
DR. PEREZ BEDSIDE AND SPEAKING WITH DR. FRY. AND WANTS TO ADMIT TO [facility].
[2020-12-04] MEDS ORDERED: IV NS 0.9% 250 ML BAG IV ONE (10:30)
--- NOTE | 2020-12-04 11:33 | NUR ---
CALLED [place] [facility] [phone] [facility] [phone] WILL CONTACT US.
--- NOTE | 2020-12-04 11:55 | NUR ---
LATISHA CALLED PT GOING TO [facility] UNDER DR. BARRIOS NO BEDS YET WILL CALL BACK WITH BED AND TRANSPORT INFO. [phone]
--- NOTE | 2020-12-04 12:54 | NUR ---
PT GOING TO [facility]. ROOM 855-1. CALL [phone] FOR REPORT
[2020-12-04 13:01] VITALS: BP 103/61
--- NOTE | 2020-12-04 13:11 | NUR ---
REPORT GIVEN TO LEAH GUY FOR VIDAL
--- NOTE | 2020-12-04 13:11 | NUR ---
REPROT GIVEN TO LEAH GUY FOR VIDAL AT THE [facility]
--- NOTE | 2020-12-04 13:53 | NUR ---
ja 2303 at bedside for pt trasnport to [facility]. Report given to Mushtaq, emt.
--- NOTE | 2020-12-04 14:22 | NUR ---
pt trasnported on gurney with 2 emt on an ambulance.
== END 2020-12-04 14:23 | disposition short-term general hospital (02) ==
LOC: ER 05:01
DX: A41.9 Sepsis, unspecified organism (principal); I21.4 Non-ST elevation (NSTEMI) myocardial infarction; Z86.73 Personal history of transient ischemic attack (TIA), and cerebral infarction without residual deficits; Z95.0 Presence of cardiac pacemaker; E03.9 Hypothyroidism, unspecified; Z79.890 Hormone replacement therapy; I50.9 Heart failure, unspecified; N40.0 Benign prostatic hyperplasia without lower urinary tract symptoms; R00.0 Tachycardia, unspecified; Z20.822 Contact with and (suspected) exposure to COVID-19
CPT/HCPCS: 36415; 71045; 80048; 80076; 83605 ×2; 83880; 84145; 84484; 85025; 85730; 87040 ×2; 87426; 93005; 96365; 96368; 96375; 99291; C9803 ×2; J0456; J0696; J1100; J2405 ×2; J7050; U0003; J7060